=== PATIENT | female | born 1995 | race Caucasian/White ===

== ENCOUNTER 2017-03-31 21:51 | Emergency (ER) | payer BC ==
[~2017-03-31] VITALS: Ht 160 cm; Wt 97.5 kg
[~2017-03-31 21:51] MED LIST: ALB18R INH; AMOX-559 PO; ATOM40CA7 PO; AZIT-1 PO; BIRTH CONTROL PILL PO; CEPH250C37 PO; CEPH500C24 PO; DICY-42 PO; DICY10CA11 PO; DIPH-740 PO; DOCU-416 PO; DOCU50CA8 PO; EPIN0.3P15 IM; ETHI1TAB3 PO; HYDR-4225 PO; HYDR-4309 PO; HYDR25SU10 PR; IBUP800T37 PO; LANS15CA54 PO; LEVO1TAB31 PO; LIDOCAINE 2% VISC SLN 15ML UDC PO ONE; LOR5/325 PO; LORA-1455 PO; LORA-1456 PO; MAG HYD/AL HYD/SIMETH 30ML UDC PO ONE; MELA1LIQ PO; MELO-205 PO; METF-410 PO; METH4TAB66 PO; NAPR275T86 PO; OMEP-114 PO; ONDA4TAB PO; ONDA4TAB97 PO; OXYC-865 PO; PER PO; POTA10CA40 PO; PRED-1 PO; PRED20TA6 PO; PROM-110 PO; PROM50SU7 PO; RANI-324 PO; SULF-198 PO; TRAM-420 PO; TRAZ-163 PO; birth control
[2017-03-31] MEDS ORDERED: BUPR-133 PO (21:56)
[2017-03-31] MEDS ORDERED: NS(*) 0.9% 1000 ML BAG 1,000 ML IV ONE (22:19)
--- NOTE | 2017-03-31 22:19 | ER Report ---
History and Physical Time Seen By MD: 23:00 Hx. of Stated Complaint: PT. HERE FOR RIGHT MIDDLE AND LOWER QUADRANT PAIN. STATES SHE HAS HAD DIARRHEA AND BELIEVES THERE IS BLOOD IN IT. ACID REFLUX TYPE SYMPTOMS. HPI/ROS CHIEF COMPLAINT: Abdominal pain HISTORY OF PRESENT ILLNESS: 32-year-old female with right upper quadrant pain off and on for 2 weeks worse with foods high in fat family history of gallstones on her father's side also presenting with diarrhea and black tarry stools 2 also noticed some painful bright red rectal blood this afternoon. No pain below the umbilicus. Denies chance for reports she has an IUD. No nausea vomiting no fevers or chills no chest pain no other concerns or complaints today last milles around 6:30 PM and was a meal bar substitute apple banana. No other concerns or complaints today no sick contacts reports colonoscopy 2 previously lipoma removal and tonsillectomy in the past. No personal history of gallbladder disease. REVIEW OF SYSTEMS: Constitutional: No fever, no chills. Eyes: No discharge. ENT: No sore throat. Cardiovascular: No chest pain, no palpitations. Respiratory: No cough, no shortness of breath. Gastrointestinal: Otherwise negative Genitourinary: No hematuria. No dysuria or frequency urgency or hesitancy Musculoskeletal: No back pain. Skin: No rashes. Neurological: No headache. Allergies: Coded Allergies: pork derived (porcine) (Verified Allergy, Severe, 03/31/17) anaphylaxis soy (Verified Allergy, Severe, 03/31/17) anaphylaxis Uncoded Allergies: beans (Allergy, Severe, 11/22/13) anaphylaxis turkey (Allergy, Mild, cramps, 12/22/13) Home Meds Active Scripts Epinephrine (EPIPEN 2-JEMMA) 0.3 Mg/0.3 Ml Pen.injctr, 0.3 MG IM BID for allergic reaction, #1 3 Refills Prov:JAIME PHILLIP 12/20/15 Reported Medications Bupropion Hcl (WELLBUTRIN SR) 100 Mg Tablet.er, 100 MG PO QDAY, TAB 03/31/17 Discontinued Reported Medications Trazodone Hcl (TRAZODONE HCL) 100 Mg Tablet, 100 MG PO PRN, TAB 08/21/16 Potassium Chloride (POTASSIUM CHLORIDE) 10 Meq Capsule.er, 10 MEQ PO QDAY 12/01/15 Discontinued Scripts Lorazepam (ATIVAN) 0.5 Mg Tablet, 1-2 TAB PO Q6-8H Y for seizures, #10 Prov:SIOMARA BERGER DO 12/01/16 Ondansetron Hcl (ZOFRAN) 4 Mg Tablet, 4 MG PO Q6H Y for NAUSEA/VOMITING, #10 Prov:SIOMARA BERGER DO 12/01/16 Hydroxyzine Hcl (HYDROXYZINE HCL) 25 Mg Tablet, 25 MG PO 2-4XD for 7 Days, #1 BOT Prov:CATE CHAMBERS MD 09/12/16 Methylprednisolone (METHYLPREDNISOLONE) 4 Mg Tab.ds.pk, 4 MG PO DIRECTED for 7 Days, #14 TAB Prov:CATE CHAMBERS MD 09/12/16 Prednisone (PREDNISONE) 20 Mg Tablet, 60 MG PO QDAY, #12 TAB 0 Refills Prov:VICENTE LU MD 09/04/16 Hydrocortisone Acetate (Hemmorex-Hc) 25 Mg Supp.rect, 1 SUPP.RECT [place] BID Y for inflamed hemorrhoids, #20 Prov:SIOMARA BERGER DO 08/21/16 Hydroxyzine Hcl (HYDROXYZINE HCL) 25 Mg Tablet, 25 MG PO 3-4XD Y for NAUSEA/ VOMITING, #20 Prov:SIOMARA BERGER DO 08/21/16 Ranitidine Hcl (ZANTAC) 150 Mg Tablet, 150 MG PO BID, #10 TAB Prov:JAIME PHILLIP DO 12/20/15 Hx Smoking: Yes (SMOKED 1/2 PPD FOR 1.5 YEARS) Smoking Status: Former Smoker Exposure to Second Hand Smoke?: Yes Hx Substance Use Disorder: No Hx Alcohol Use: No Constitutional Vital Sign - Last 24 Hours 03/31/17 21:56 Temp 98.2 Pulse 86 Resp 20 B/P (MAP) 127/75 Pulse Ox 96 O2 Delivery Room Air Physical Exam General Appearance: The patient is alert, has no immediate need for airway protection and no signs of toxicity. No acute distress appears mildly anxious Eyes: Pupils equal and round no pallor or injection. ENT, Mouth: Mucous membranes are moist. Respiratory: There are no retractions, lungs are clear to auscultation. Cardiovascular: Regular rate and rhythm. No murmurs gallops or rubs Gastrointestinal: Right upper quadrant tenderness to palpation reports worse with deep inspiration. Midline and left-sided abdominal tenderness epigastric region. No tenderness below the umbilicus. Rectal exam: Normal external appearance no obvious fissure. Digital rectal exam produced mild bright red blood visible on glove. Anoscopy revealed no obvious internal bleeding hemorrhoids. Neurological: Normal, intact Skin: Warm and dry, no rashes. Musculoskeletal: Neck is supple non tender. Extremities are nontender, nonswollen and have full range of motion. No edema DIFFERENTIAL DIAGNOSIS: After history and physical exam differential diagnosis was considered for gallstones reflux gastritis peptic ulcer disease, pyelonephritis no signs of AAA or aortic dissection Medical Decision Making Data Points Result Diagram: 03/31/17222403/31/172224 Laboratory Hematology Test 03/31/17 22:25 03/31/17 22:43 03/31/17 22:46 Red Blood Count 4.53 M/uL (4.17-5.56) Mean Corpuscular Volume 93.2 fL (80.0-96.0) Mean Corpuscular Hemoglobin 32.2 pg (26.0-33.0) Mean Corpuscular Hemoglobin Concent 34.5 g/dL (32.0-36.0) Red Cell Distribution Width 13.1 % (11.5-14.5) Mean Platelet Volume 6.7 fL (7.2-11.1) Neutrophils (%) (Auto) 41.3 % (39.4-72.5) Lymphocytes (%) (Auto) 45.2 % (17.6-49.6) Monocytes (%) (Auto) 10.9 % (4.1-12.4) Eosinophils (%) (Auto) 2.1 % (0.4-6.7) Basophils (%) (Auto) 0.5 % (0.3-1.4) Nucleated RBC Relative Count (auto) 0.1 /100WBC Neutrophils # (Auto) 2.4 K/uL (2.0-7.4) Lymphocytes # (Auto) 2.7 K/uL (1.3-3.6) Monocytes # (Auto) 0.6 K/uL (0.3-1.0) Eosinophils # (Auto) 0.1 K/uL (0.0-0.5) Basophils # (Auto) 0.0 K/uL (0.0-0.1) Nucleated RBC Absolute Count (auto) 0.00 K/uL Sodium Level 136 mmol/L (137-145) Potassium Level 3.7 mmol/L (3.5-5.0) Chloride Level 103 mmol/L (98-107) Carbon Dioxide Level 23 mmol/L (22-31) Blood Urea Nitrogen 17 mg/dl (7-18) Creatinine 0.80 mg/dl (0.52-1.04) Glomerular Filtration Rate Calc > 60.0 Random Glucose 88 mg/dl (75-110) Calcium Level 9.5 mg/dl (8.4-10.2) Total Bilirubin 0.5 mg/dl (0.2-1.3) Aspartate Amino Transf (AST/SGOT) 19 U/L (0-35) Alanine Aminotransferase (ALT/SGPT) 41 U/L (0-56) Alkaline Phosphatase 84 U/L (0-126) Total Protein 6.4 gm/dl (6.3-8.2) Albumin 3.9 g/dl (3.5-5.0) Lipase 115 U/L (23-300) Urine Color Yellow Urine Clarity Clear Urine pH 6.0 pH (4.8-9.5) Urine Specific [place] 1.011 Urine Protein Negative mg/dL (NEGATIVE) Urine Glucose (UA) Negative mg/dL (NEGATIVE) Urine Ketones Negative mg/dL (NEGATIVE) Urine Blood Large (NEGATIVE) Urine Nitrite Negative (NEGATIVE) Urine Bilirubin Negative (NEGATIVE) Urine Urobilinogen Negative mg/dL (0.2-1.9) Urine Leukocyte Esterase Negative (NEGATIVE) Urine RBC 156 /HPF (0-2/HPF) Urine WBC 28 /HPF (0-5/HPF) Urine Squamous Epithelial Cells Many /LPF (</=FEW) Urine Bacteria Few /HPF (NONE-FEW) Urine Mucus None /HPF (NONE-FEW) Stool Occult Blood (IFOB) Positive (NEGATIVE) Chemistry Test 03/31/17 22:25 03/31/17 22:43 03/31/17 22:46 White Blood Count 5.9 k/uL (4.5-11.0) Red Blood Count 4.53 M/uL (4.17-5.56) Hemoglobin 14.6 g/dL (12.0-16.0) Hematocrit 42.3 % (34.0-47.0) Mean Corpuscular Volume 93.2 fL (80.0-96.0) Mean Corpuscular Hemoglobin 32.2 pg (26.0-33.0) Mean Corpuscular Hemoglobin Concent 34.5 g/dL (32.0-36.0) Red Cell Distribution Width 13.1 % (11.5-14.5) Platelet Count 248 K/uL (150-450) Mean Platelet Volume 6.7 fL (7.2-11.1) Neutrophils (%) (Auto) 41.3 % (39.4-72.5) Lymphocytes (%) (Auto) 45.2 % (17.6-49.6) Monocytes (%) (Auto) 10.9 % (4.1-12.4) Eosinophils (%) (Auto) 2.1 % (0.4-6.7) Basophils (%) (Auto) 0.5 % (0.3-1.4) Nucleated RBC Relative Count (auto) 0.1 /100WBC Neutrophils # (Auto) 2.4 K/uL (2.0-7.4) Lymphocytes # (Auto) 2.7 K/uL (1.3-3.6) Monocytes # (Auto) 0.6 K/uL (0.3-1.0) Eosinophils # (Auto) 0.1 K/uL (0.0-0.5) Basophils # (Auto) 0.0 K/uL (0.0-0.1) Nucleated RBC Absolute Count (auto) 0.00 K/uL Glomerular Filtration Rate Calc > 60.0 Calcium Level 9.5 mg/dl (8.4-10.2) Total Bilirubin 0.5 mg/dl (0.2-1.3) Aspartate Amino Transf (AST/SGOT) 19 U/L (0-35) Alanine Aminotransferase (ALT/SGPT) 41 U/L (0-56) Alkaline Phosphatase 84 U/L (0-126) Total Protein 6.4 gm/dl (6.3-8.2) Albumin 3.9 g/dl (3.5-5.0) Lipase 115 U/L (23-300) Urine Color Yellow Urine Clarity Clear Urine pH 6.0 pH (4.8-9.5) Urine Specific [place] 1.011 Urine Protein Negative mg/dL (NEGATIVE) Urine Glucose (UA) Negative mg/dL (NEGATIVE) Urine Ketones Negative mg/dL (NEGATIVE) Urine Blood Large (NEGATIVE) Urine Nitrite Negative (NEGATIVE) Urine Bilirubin Negative (NEGATIVE) Urine Urobilinogen Negative mg/dL (0.2-1.9) Urine Leukocyte Esterase Negative (NEGATIVE) Urine RBC 156 /HPF (0-2/HPF) Urine WBC 28 /HPF (0-5/HPF) Urine Squamous Epithelial Cells Many /LPF (</=FEW) Urine Bacteria Few /HPF (NONE-FEW) Urine Mucus None /HPF (NONE-FEW) Stool Occult Blood (IFOB) Positive (NEGATIVE) Urinalysis Test 03/31/17 22:43 Urine Color Yellow Urine Clarity Clear Urine pH 6.0 pH (4.8-9.5) Urine Specific [place] 1.011 Urine Protein Negative mg/dL (NEGATIVE) Urine Glucose (UA) Negative mg/dL (NEGATIVE) Urine Ketones Negative mg/dL (NEGATIVE) Urine Blood Large (NEGATIVE) Urine Nitrite Negative (NEGATIVE) Urine Bilirubin Negative (NEGATIVE) Urine Urobilinogen Negative mg/dL (0.2-1.9) Urine Leukocyte Esterase Negative (NEGATIVE) Urine RBC 156 /HPF (0-2/HPF) Urine WBC 28 /HPF (0-5/HPF) Urine Squamous Epithelial Cells Many /LPF (</=FEW) Urine Bacteria Few /HPF (NONE-FEW) Urine Mucus None /HPF (NONE-FEW) EKG/Imaging Imaging Negative gallbladder study ED Course/Re-evaluation ED Course Plan of care discussed and agreed upon at 03/31/2017 10:18:10 pm 04/01/2017 12:09:59 am patient reports feeling better as well enough to go home. Avoidance of acidic spicy food and NSAIDs was discussed. Home care foods choices and twice a day antacids as well as referral for follow-up was discussed all questions were answered and understood Decision to Disposition Date: Apr 01, 2017 Decision to Disposition Time: 00:10 Depart Departure Latest Vital Signs Vital Signs Date Time Temp Pulse Resp B/P (MAP) Pulse Ox O2 Delivery O2 Flow Rate FiO2 03/31/17 21:56 98.2 86 20 127/75 96 Room Air Impression: Primary Impression: BRBPR (bright red blood per rectum) Additional Impression: Right upper quadrant abdominal pain Condition: Improved Disposition: HOME OR SELF-CARE Referrals: LEELA CAMPBELL (PCP) New Scripts Hydrocodone Bit/Acetaminophen (HYDROCODON-ACETAMINOPHEN 5-325) 1 Each Tablet 1 EACH PO Q6H Y for PAIN, #12 TAB 0 Refills Prov: FRANCESCA HUDSON MD 04/01/17 Pantoprazole Sodium (PROTONIX) 40 Mg Granpkt.dr 40 MG PO BID for 7 Days, #40 PACK Prov: FRANCESCA HUDSON MD 04/01/17 Patient Instructions: Diet for Stomach Ulcers and Gastritis (ED) Additional Instructions: Follow-up. With your Dr. for Helicobacter pylori screening as needed. Follow-up with your surgeon for further evaluation of source of GI blood. Return to the ED for chest pain shortness of breath weakness dizziness lightheadedness pale skin or eyes worsening bleeding failure to improve or other concerns. Problem Qualifiers FRANCESCA HUDSON MD Mar 31, 2017 22:19
[2017-03-31] MEDS ORDERED: MORPHINE 4 MG/ML SYR IVP ONE ×2 (22:20→23:40)
[2017-03-31] MEDS ORDERED: ATRO/SCOPOL/HYOSCY/PB 5 ML ELX PO ONE (22:20)
[2017-03-31] MEDS ORDERED: ONDANSETRON 4 MG/2 ML VIAL IVP ONE (22:20)
[2017-03-31] MEDS ORDERED: FAMOTIDINE(*) 20MG/50ML PREMIX 50 ML IVPB ONE (22:20)
[2017-03-31 22:49] LABS: PLATELET COUNT, AUTOMATED 248 K/uL (150-450)
[2017-03-31 23:47] VITALS: BP 123/85
--- NOTE | 2017-03-31 23:53 | RADIOLOGY IMAGING REPORT ---
FACILITY: [facility] PATIENT NAME: Sally Smiley : 1995 MR: [id number] V: [id number] EXAM DATE: ORDERING PHYSICIAN: FRANCESCA HUDSON TECHNOLOGIST: Location: [facility] Patient: Sally Smiley : 1995 Visit/Account:[id number] Date of Sevice: 03/31/2017 Right upper quadrant ultrasound HISTORY: Abdominal pain COMPARISON: None. FINDINGS: Gallbladder: Negative.. Bile ducts: There is no biliary ductal dilation with the CBD measuring 3 mm. Liver: Negative. Pancreas: Obscured by bowel gas Right kidney: Negative. Upper abdominal aorta and IVC: Patent. Ascites: None visualized. Other findings: None significant IMPRESSION: 1. Normal gallbladder. No biliary ductal dilatation. 2. Suboptimal visualization of the pancreas. Report Dictated By: Matt Gaitan MD at 03/31/2017 11:47 PM Report E-Signed By: Matt Gaitan MD at 03/31/2017 11:48 PM WSN:[id number]
[2017-04-01] MEDS ORDERED: PANT40SU3 PO (00:14)
[2017-04-01] MEDS ORDERED: LOR5/325 PO (00:16)
== END 2017-04-01 00:28 | disposition home or self-care (01) ==
LOC: ER 22:00
DX: K62.5 Hemorrhage of anus and rectum (principal)
CPT/HCPCS: 76705; 81001; 82274; 83690; 85025; 96361; 96365; 96375; 96376; 99283; J2270; J2405; J3490; J7030; 82040; 82247; 82310; 82374; 82435; 82565; 82947; 84075; 84132; 84155; 84295; 84450; 84460; 84520

== ENCOUNTER 2017-04-06 00:34 | Emergency (ER) | payer BC ==
[~2017-04-06] VITALS: Ht 160 cm; Wt 97.5 kg
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
[2017-04-06] MEDS ORDERED: methylPREDNIS SUCC 125 MG/2ML IVP ONE (00:40)
[2017-04-06] MEDS ORDERED: FAMOTIDINE(*) 20MG/50ML PREMIX 50 ML IVPB ONE (00:40)
[2017-04-06] MEDS ORDERED: NS(*) 0.9% 1000 ML BAG 1,000 ML IV ONE (00:40)
[2017-04-06] MEDS ORDERED: PRED20TA6 PO (02:03)
[2017-04-06] MEDS ORDERED: EPIN0.3P15 IM (02:04)
[2017-04-06] MEDS ORDERED: predniSONE 20 MG TAB PO ONE (02:05)
[2017-04-06 02:07] VITALS: BP 128/88
== END 2017-04-06 02:11 | disposition home or self-care (01) ==
LOC: ER 00:37
DX: T78.1XXA Other adverse food reactions, not elsewhere classified, initial encounter (principal)
CPT/HCPCS: 96365; 96375; 99284; J2930; J3490; J7030; J7512

== ENCOUNTER → 2017-04-06 | Outpatient (CLI) | payer BC ==
[~2017-04-06] MED LIST changes: +BUPR-133 PO; -LIDOCAINE 2% VISC SLN 15ML UDC PO ONE; -MAG HYD/AL HYD/SIMETH 30ML UDC PO ONE; +PANT40SU3 PO
== END ==
LOC: AMB 00:08
PROVIDERS: ATTEND Nurse Practitioner
DX: T78.1XXA Other adverse food reactions, not elsewhere classified, initial encounter (principal); R11.10 Vomiting, unspecified
CPT/HCPCS: A0425; A0433

== ENCOUNTER → 2017-04-09 | Outpatient (CLI) | payer BC ==
[2017-04-09 15:34] LABS: PLATELET COUNT, AUTOMATED 238 K/uL (150-450)
== END ==
LOC: LAB 15:09
PROVIDERS: ATTEND Nurse Practitioner Family
DX: R19.7 Diarrhea, unspecified (principal); K92.1 Melena; R10.30 Lower abdominal pain, unspecified
CPT/HCPCS: 36415; 82040; 82247; 82248; 82274; 82784; 83516; 83993; 84075; 84155; 84450; 84460; 85025; 85651; 86140; 87045; 87177; 87324; 87449

== ENCOUNTER 2017-04-14 01:21 | Emergency (ER) | payer BC ==
[~2017-04-14] VITALS: Ht 160 cm; Wt 94.8 kg
--- NOTE | 2017-04-14 01:28 | ER Report ---
History and Physical Time Seen By MD: 01:27 HPI/ROS CHIEF COMPLAINT: rectal bleeding and syncope HISTORY OF PRESENT ILLNESS: This is a 22 year old female. She indicates that she had a syncopal episode at home tonight. She passed out and then awoke with a small puddle of blood. She estimates that she passed a couple of cups of blood. She has been having about 7 months of having GI bleeds. She has been to the ER several times for this, and has had positive stools on occult blood. Labs have been alright each time otherwise. She has followed up with general surgery here and had upper endoscopy and colonoscopy without identification of any abnormality other than some internal hemorrhoids that did not appear to be bleeding. She has been evaluated by BRAD Galvez, at [facility] and has an appointment with her this Saturday. She does not know how long she was out tonight, estimates a couple of hours. She denies chest pains or shortness of breath. She is having ongoing nausea/vomiting tonight. Has not noted any hematemesis. She is having right and left lower abdominal pains. She said her urine had a pink color yesterday, but normal today. She has had bleeding every other or every third day for the last couple of months. She says that it seems to be happening more frequently and worsening when it does happen. REVIEW OF SYSTEMS: Constitutional: No fever or chills. Eyes: No vision changes. ENT: No sore throat. No congestion. Cardiovascular: No chest pain. No palpitations. Respiratory: No cough. No shortness of breath. Gastrointestinal: As above. Genitourinary: No dysuria. No frequency Musculoskeletal: No musculoskeletal pain. Skin: No rashes. No bruising. Neurological: No numbness. No headache. Allergies: Coded Allergies: pork derived (porcine) (Verified Allergy, Severe, 04/14/17) anaphylaxis soy (Verified Allergy, Severe, 04/14/17) anaphylaxis Uncoded Allergies: beans (Allergy, Severe, 11/22/13) anaphylaxis turkey (Allergy, Mild, cramps, 12/22/13) Home Meds Active Scripts Epinephrine (EPIPEN 2-JEMMA) 0.3 Mg/0.3 Ml Pen.injctr, 0.3 MG IM DIRECTED, #1 PACK 0 Refills Prov:VICENTE LU MD 04/06/17 Prednisone (PREDNISONE) 20 Mg Tablet, 20 MG PO QDAY for 2 Days, #4 TAB 0 Refills Prov:VICENTE LU MD 04/06/17 Hydrocodone Bit/Acetaminophen (HYDROCODON-ACETAMINOPHEN 5-325) 1 Each Tablet, 1 EACH PO Q6H Y for PAIN, #12 TAB 0 Refills Prov:FRANCESCA HUDSON MD 04/01/17 Pantoprazole Sodium (PROTONIX) 40 Mg Granpkt.dr, 40 MG PO BID for 7 Days, #40 PACK Prov:FRANCESCA HUDSON MD 04/01/17 Epinephrine (EPIPEN 2-JEMMA) 0.3 Mg/0.3 Ml Pen.injctr, 0.3 MG IM BID for allergic reaction, #1 3 Refills Prov:JAIME PHILLIP DO 12/20/15 Reported Medications Bupropion Hcl (WELLBUTRIN SR) 100 Mg Tablet.er, 100 MG PO QDAY, TAB 03/31/17 Past Medical/Surgical History Irritable bowel syndrome, polycystic ovarian syndrome, history of kidney stones , exercised induced asthma, depression and anxiety. Surgeries include lipoma removal, tonsils, was to him teeth. Colonoscopies and EGDs as noted above. Reviewed Nurses Notes: Yes Hx Smoking: Yes (SMOKED 1/2 PPD FOR 1.5 YEARS) Smoking Status: Former Smoker Exposure to Second Hand Smoke?: Yes Hx Substance Use Disorder: No Hx Alcohol Use: No Constitutional Vital Sign - Last 24 Hours 04/14/17 04/14/17 04/14/17 04/14/17 01:30 01:37 01:37 01:37 Pulse 133 Resp 24 B/P (MAP) 129/85 118/84 (95) 111/99 (103) 131/104 (113) Pulse Ox 94 O2 Delivery Room Air 04/14/17 04/14/17 04/14/17 04/14/17 01:51 01:59 02:00 02:06 Pulse 111 113 B/P (MAP) 128/86 (100) 134/84 (101) Pulse Ox 91 94 04/14/17 04/14/17 04/14/17 04/14/17 02:21 02:30 02:41 02:46 Pulse 116 125 115 B/P (MAP) 125/82 (96) Pulse Ox 93 88 100 04/14/17 04/14/17 04/14/17 04/14/17 02:51 03:21 03:36 03:41 Pulse 114 ??? 108 106 Pulse Ox 96 94 96 96 04/14/17 04/14/17 04/14/17 04/14/17 03:56 04:00 04:05 04:20 Pulse 112 117 107 B/P (MAP) 85/47 (60) Pulse Ox 94 96 96 04/14/17 04/14/17 04/14/17 04/14/17 04:30 04:35 04:50 04:55 Pulse ??? 101 ??? B/P (MAP) 101/68 (79) Pulse Ox 96 94 91 04/14/17 04/14/17 04/14/17 04/14/17 05:00 05:10 05:25 05:30 Pulse 102 103 B/P (MAP) 91/61 (71) 91/45 (60) Pulse Ox 92 89 04/14/17 04/14/17 04/14/17 04/14/17 05:35 05:50 06:00 06:05 Pulse 100 102 100 B/P (MAP) 90/50 (63) Pulse Ox 89 92 84 Physical Exam General Appearance: The patient is alert. she is very anxious. Non-toxic in appearance. Occasional vomiting during the history and physical. Eyes: Pupils are equal, round. No pallor, injection or icterus. ENT: Mucous membranes are moist. Normal oral mucosa. Posterior oropharynx is normal. Neck: Supple and non tender. Respiratory: Lungs are clear to auscultation. Cardiovascular: Tachycardia, but with a regular rhythm. No murmurs, gallops or rubs. Normal capillary refill. No edema. Gastrointestinal: Abdomen is soft, but very tender with palpation of the left lower and right lower quadrants. Nondistended. She has guarding but no rebound. Hyper-active bowel sounds. No costovertebral angle tenderness with percussion. Rectal: Tenderness on exam, but no masses. Very scan brownish color, no red blood on exam. Neurological: Alert and oriented x3. Cranial nerves II through XII show no acute deficits on my exam. No focal neurologic deficits in the extremities. Skin: Warm and dry. No rashes. No bruising. Musculoskeletal: Extremities are nontender. No tenderness in palpation of the back/spine. DIFFERENTIAL DIAGNOSIS: After history and physical exam, differential diagnosis was considered for history of syncopal episode at home and recent episode of bright red blood with history of GI bleeding intermittently for months now. Medical Decision Making Data Points Result Diagram: 04/14/17 0548 04/14/17 0155 Laboratory Hematology Test 04/14/17 00:00 04/14/17 01:55 04/14/17 02:25 04/14/17 05:48 Gastric Fluid pH 3 pH Gastric Fluid Occult Blood Negative (NEGATIVE) Prothrombin Time 13.5 seconds (12.0-14.4) Prothromb Time International Ratio 1.03 Activated Partial Thromboplast Time 27 seconds (23-35) Sodium Level 142 mmol/L (137-145) Potassium Level 3.5 mmol/L (3.5-5.0) Chloride Level 108 mmol/L (98-107) Carbon Dioxide Level 17 mmol/L (22-31) Blood Urea Nitrogen 22 mg/dl (7-18) Creatinine 1.00 mg/dl (0.52-1.04) Glomerular Filtration Rate Calc > 60.0 Random Glucose 84 mg/dl (75-110) Calcium Level 9.3 mg/dl (8.4-10.2) Total Bilirubin 0.3 mg/dl (0.2-1.3) Aspartate Amino Transf (AST/SGOT) 21 U/L (0-35) Alanine Aminotransferase (ALT/SGPT) 39 U/L (0-56) Alkaline Phosphatase 73 U/L (0-126) Total Protein 6.8 gm/dl (6.3-8.2) Albumin 4.1 g/dl (3.5-5.0) Stool Occult Blood (IFOB) Positive (NEGATIVE) Red Blood Count 3.82 M/uL (4.17-5.56) Mean Corpuscular Volume 95.4 fL (80.0-96.0) Mean Corpuscular Hemoglobin 33.1 pg (26.0-33.0) Mean Corpuscular Hemoglobin Concent 34.7 g/dL (32.0-36.0) Red Cell Distribution Width 13.1 % (11.5-14.5) Mean Platelet Volume 6.5 fL (7.2-11.1) Neutrophils (%) (Auto) 50.4 % (39.4-72.5) Lymphocytes (%) (Auto) 36.8 % (17.6-49.6) Monocytes (%) (Auto) 11.5 % (4.1-12.4) Eosinophils (%) (Auto) 1.0 % (0.4-6.7) Basophils (%) (Auto) 0.3 % (0.3-1.4) Nucleated RBC Relative Count (auto) 0.0 /100WBC Neutrophils # (Auto) 3.3 K/uL (2.0-7.4) Lymphocytes # (Auto) 2.4 K/uL (1.3-3.6) Monocytes # (Auto) 0.8 K/uL (0.3-1.0) Eosinophils # (Auto) 0.1 K/uL (0.0-0.5) Basophils # (Auto) 0.0 K/uL (0.0-0.1) Nucleated RBC Absolute Count (auto) 0.00 K/uL Chemistry Test 04/14/17 00:00 04/14/17 01:55 04/14/17 02:25 04/14/17 05:48 Gastric Fluid pH 3 pH Gastric Fluid Occult Blood Negative (NEGATIVE) Prothrombin Time 13.5 seconds (12.0-14.4) Prothromb Time International Ratio 1.03 Activated Partial Thromboplast Time 27 seconds (23-35) Glomerular Filtration Rate Calc > 60.0 Calcium Level 9.3 mg/dl (8.4-10.2) Total Bilirubin 0.3 mg/dl (0.2-1.3) Aspartate Amino Transf (AST/SGOT) 21 U/L (0-35) Alanine Aminotransferase (ALT/SGPT) 39 U/L (0-56) Alkaline Phosphatase 73 U/L (0-126) Total Protein 6.8 gm/dl (6.3-8.2) Albumin 4.1 g/dl (3.5-5.0) Stool Occult Blood (IFOB) Positive (NEGATIVE) White Blood Count 6.6 k/uL (4.5-11.0) Red Blood Count 3.82 M/uL (4.17-5.56) Hemoglobin 12.6 g/dL (12.0-16.0) Hematocrit 36.4 % (34.0-47.0) Mean Corpuscular Volume 95.4 fL (80.0-96.0) Mean Corpuscular Hemoglobin 33.1 pg (26.0-33.0) Mean Corpuscular Hemoglobin Concent 34.7 g/dL (32.0-36.0) Red Cell Distribution Width 13.1 % (11.5-14.5) Platelet Count 189 K/uL (150-450) Mean Platelet Volume 6.5 fL (7.2-11.1) Neutrophils (%) (Auto) 50.4 % (39.4-72.5) Lymphocytes (%) (Auto) 36.8 % (17.6-49.6) Monocytes (%) (Auto) 11.5 % (4.1-12.4) Eosinophils (%) (Auto) 1.0 % (0.4-6.7) Basophils (%) (Auto) 0.3 % (0.3-1.4) Nucleated RBC Relative Count (auto) 0.0 /100WBC Neutrophils # (Auto) 3.3 K/uL (2.0-7.4) Lymphocytes # (Auto) 2.4 K/uL (1.3-3.6) Monocytes # (Auto) 0.8 K/uL (0.3-1.0) Eosinophils # (Auto) 0.1 K/uL (0.0-0.5) Basophils # (Auto) 0.0 K/uL (0.0-0.1) Nucleated RBC Absolute Count (auto) 0.00 K/uL Coagulation Test 04/14/17 01:55 Prothrombin Time 13.5 seconds Prothromb Time International Ratio 1.03 Activated Partial Thromboplast Time 27 seconds EKG/Imaging EKG Interpretation 12 lead EKG: Rhythm: Sinus tachycardia, rate 115 [place]: normal QRS: normal ST segments: Nonspecific T-wave changes. No ST elevation or depression noted. Imaging Head CT scan without contrast COMPARISONS: None HISTORY: Syncope TECHNIQUE: Non-contrast head CT was performed with sagittal and coronal reformations. One of the following dose optimization techniques was utilized in the performance of this exam: automated exposure control; adjustment of the mA and/ or kV according to patient size; or use of iterative reconstruction technique. Specific details can be referenced in the facility's radiology CT exam operational policy. FINDINGS: There is no intracranial hemorrhage, hydrocephalus or midline shift. The basal cisterns, mills-white differentiation, and convexity sulci are maintained. Normal orbital soft tissues. The mastoid air cells are clear. The paranasal sinuses are clear. The osseous structures are normal. IMPRESSION: No acute intracranial abnormality. Report Dictated By: Roberth Monique MD at 04/14/2017 3:27 AM EXAMINATION: Abdomen and pelvis CT with contrast HISTORY: Right lower quadrant pain, bright red blood per rectum TECHNIQUE: CT was performed through the abdomen and pelvis following injection of iodinated intravenous contrast. Sagittal and coronal MPR reformatted images were generated. 75 mL isovue 370 injected. One of the following dose optimization techniques was utilized in the performance of this exam: automated exposure control; adjustment of the mA and/ or kV according to patient size; or use of iterative reconstruction technique. Specific details can be referenced in the facility's radiology CT exam operational policy. COMPARISON: None. FINDINGS: Lower chest: Normal. Spleen: Normal. Adrenal glands: Normal. Pancreas: Normal. Kidneys: Normal. Gallbladder: Normal. Liver: Normal. Vessels: Normal. Lymph node assessment: Normal. Bowel including small bowel, colon and appendix: Normal stomach, normal small bowel, normal appendix, normal colon. Peritoneum / retroperitoneum / mesentery: Normal. Pelvic structures: Normal bladder and normal rectum. IUD within the uterine endometrial canal. No pelvic fluid or adenopathy. Right ovarian corpus luteum cyst measuring 1.4 cm. Body wall: Normal. Musculoskeletal: No fracture or osseous destruction. IMPRESSION: 1. No acute finding. 2. 1.4 cm right ovarian corpus routine cyst. Report Dictated By: Roberth Monique MD at 04/14/2017 3:31 AM ED Course/Re-evaluation Clinical Indication for ER IV: Hydration, IV Access ED Course Initial vitals as noted above. Nursing took supine blood pressure which was 131/ 104 and then standing was 111/99. She has reained tachycardic in the 110-120 range. She went to the bathroom and had a near syncopal episode and fell onto hands and knees, but not loc. She does feel dizzy with upright position. EKG was obtained as noted above. CT scans done which were negative. Labs show a normal H/H, Platelets, and coagulation factors. Patient has had two near syncopal episodes here in the ER and almost fell. She is still feeling dizzy. Having continued abdominal pain. Discussed the results with the patient. Called and discussed the case with Dr. Garza, gastroenterology at [facility] and the hospitalist, Dr. Connelly. Based on labs and vitals, they felt that transfer was not indicated at this time. Recommended to follow-up with their office as planned this week unless further problems. We will provide further normal saline and re-evaluate to make sure she is stable prior to discharge. Patient was given another 2 liters of normal saline over the next few hours. She was feeling better. She is still a little dizzy, but with time, she does okay. A CBC was repeated and her H/H is a little lower, but still within normal limits. She will keep her appointment with the GI specialist on Saturday. She can return to the ER either here or [place] if she is having further problems. Decision to Disposition Date: Apr 14, 2017 Decision to Disposition Time: 06:09 Depart Departure Latest Vital Signs Vital Signs Date Time Temp Pulse Resp B/P (MAP) Pulse Ox O2 Delivery O2 Flow Rate FiO2 04/14/17 06:05 100 84 04/14/17 06:00 90/50 (63) 04/14/17 01:30 24 Room Air Impression: Primary Impression: Gastrointestinal bleeding Additional Impression: Syncope Condition: Improved Disposition: HOME OR SELF-CARE Referrals: LEELA CAMPBELL (PCP) Patient Instructions: Gastrointestinal Bleeding (ED) Additional Instructions: Your lab work looked okay tonight. Watch for further bleeding. Take it slowly when you get up from a laying or seated position to avoid becoming dizzy or falling. Keep you appointment with the GI specialists in [place] on Saturday as planned. If you have further bleeding, please consider further evaluation sooner at the ER or with your GI specialist in [place]. Problem Qualifiers Primary Impression: Gastrointestinal bleeding GI bleed type/associated pathology: unspecified gastrointestinal hemorrhage type Qualified Codes: K92.2 - Gastrointestinal hemorrhage, unspecified Additional Impression: Syncope Syncope type: vasovagal syncope Qualified Codes: R55 - Syncope and collapse VICENTE LU MD Apr 14, 2017 01:28
[2017-04-14] MEDS ORDERED: NS(*) 0.9% 1000 ML BAG 1,000 ML IV ONE ×4 (01:35→05:00)
[2017-04-14] MEDS ORDERED: ONDANSETRON 4 MG/2 ML VIAL IVP ONE (01:35)
[2017-04-14] MEDS ORDERED: NS 0.9% 20 ML SDV 40 ML ONE (01:50)
[2017-04-14] MEDS ORDERED: IOPAMIDOL 76% 75 ML INFUS BTL 75 ML ONE (01:50)
[2017-04-14 02:12] LABS: PLATELET COUNT, AUTOMATED 243 K/uL (150-450)
[2017-04-14 02:15] LABS: INR 1.03
[2017-04-14] MEDS ORDERED: PROMETHAZINE 25 MG/ML 1 ML AMP IVP ONE (02:35)
[2017-04-14] MEDS ORDERED: PANTOPRAZOLE SOD 40 MG IV VIAL IVP ONE (02:35)
--- NOTE | 2017-04-14 03:37 | RADIOLOGY IMAGING REPORT ---
FACILITY: [facility] [place] PATIENT NAME: Sally Smiley : 1995 MR: [id number] V: [id number] EXAM DATE: ORDERING PHYSICIAN: VICENTE LU TECHNOLOGIST: [place] [facility] [place] : 1995 Visit/Account:[id number] Date of Sevice: 04/14/[address] scan without contrast COMPARISONS: None HISTORY: Syncope TECHNIQUE: Non-contrast head CT was performed with sagittal and coronal reformations. One of the following dose optimization techniques was utilized in the performance of this exam: autom ated exposure control; adjustment of the mA and/or kV according to patient size; or use of iterative reconstruction technique. Specific details can be referenced in the facility's radiology CT exam ope rational policy. FINDINGS: There is no intracranial hemorrhage, hydrocephalus or midline shift. The basal cisterns, mills-white differentiation, and convexity sulci are maintained. Normal orbital soft tissues. The mastoid air cells are clear. The paranasal sinuses are clear. The osseous structures are normal . IMPRESSION: No acute intracranial abnormality. Report Dictated By: Roberth Monique MD at 04/14/2017 3:27 AM Report E-Signed By: Roberth Monique MD at 04/14/2017 3:31 AM WSN:[id number]
--- NOTE | 2017-04-14 03:41 | RADIOLOGY IMAGING REPORT ---
[place] [facility] [place] Sally Sm[place] : 1995 MR: [id number] V: [id number] EXAM DATE: ORDERING PHYSICIAN: VICENTE LU TECHNOLOGIST: [place] [facility] [place] Sm[place] : 1995 Visit/Account:[id number] Date of Sevice: 04/14/2017 EXAMINATION: Abdomen and pelvis CT with contrast HISTORY: Right lower quadrant pain, bright red blood per rectum TECHNIQUE: CT was performed through the abdomen and pelvis following injection of iodinated intrave nous contrast. Sagittal and coronal MPR reformatted images were generated. 75 mL isovue 370 injected . One of the following dose optimization techniques was utilized in the performance of this exam: autom ated exposure control; adjustment of the mA and/or kV according to patient size; or use of iterative reconstruction technique. Specific details can be referenced in the facility's radiology CT exam ope rational policy. COMPARISON: None. FINDINGS: Lower chest: Normal. Spleen: Normal. Adrenal glands: Normal. Pancreas: Normal. Kidneys: Normal. Gallbladder: Normal. Liver: Normal. Vessels: Normal. Lymph node assessment: Normal. Bowel including small bowel, colon and appendix: Normal stomach, normal small bowel, normal appendix, normal colon. Peritoneum / retroperitoneum / mesentery: Normal. Pelvic structures: Normal bladder and normal rectum. IUD within the uterine endometrial canal. No pelvic fluid or adenopathy. Right ovarian corpus luteum cyst measuring 1.4 cm. Body wall: Normal. Musculoskeletal: No fracture or osseous destruction. IMPRESSION: 1. No acute finding. 2. 1.4 cm right ovarian corpus routine cyst. Report Dictated By: Roberth Monique MD at 04/14/2017 3:31 AM Report E-Signed By: Roberth Monique MD at 04/14/2017 3:37 AM WSN:[id number]
[2017-04-14] MEDS ORDERED: MORPHINE 2 MG/ML SYR IVP ONE (04:45)
--- NOTE | 2017-04-14 04:57 | EKG ---
FACILITY: [facility] PATIENT NAME: PAULO SARAH : [id number] MR: [id number]: [id number] EXAM DATE: ORDERING PHYSICIAN: VICENTE LU TECHNOLOGIST: KHALIDA Test Reason : ABDOMINAL PAIN Blood Pressure : / mmHG Vent. Rate : 115 BPM Atrial Rate : 115 BPM P-R Int : 148 ms QRS Dur : 096 ms QT Int : 336 ms P-R-T Axes : 052 057 019 degrees QTc Int : 464 ms Sinus tachycardia Artifact in several precordial leads - repeat if needed Abnormal ECG Confirmed by TIMOTHY LYON ([id number]) on 04/14/2017 5:51:57 AM Referred By: Confirmed By:TIMOTHY LYON
[2017-04-14 06:08] LABS: PLATELET COUNT, AUTOMATED 189 K/uL (150-450)
[2017-04-14 06:20] VITALS: BP 97/63
[2017-04-14] MEDS ORDERED: ONDA4TAB97 PO (22:48)
[2017-04-14] MEDS ORDERED: PROM-110 PO (22:48)
[2017-04-14] MEDS ORDERED: TRAM-420 PO (22:48)
== END 2017-04-14 06:24 | disposition home or self-care (01) ==
LOC: ER 02:00
DX: K92.2 Gastrointestinal hemorrhage, unspecified (principal); R55 Syncope and collapse
CPT/HCPCS: 70450; 74177; 82271; 82274; 83986; 85025; 85610; 85730; 93005; 96361; 96374; 96375; 99284; C9113; J2270; J2405; J2550; J7030; J7050; Q9967; 82040; 82247; 82310; 82374; 82435; 82565; 82947; 84075; 84132; 84155; 84295; 84450; 84460; 84520

== ENCOUNTER 2017-04-14 21:29 | Emergency (ER) | payer BC ==
[~2017-04-14] VITALS: Ht 160 cm; Wt 94.8 kg
--- NOTE | 2017-04-14 21:32 | ER Report ---
History and Physical Time Seen By MD: 21:31 HPI/ROS CHIEF COMPLAINT: Right upper and lower quadrant abdominal pain, continued rectal bleeding HISTORY OF PRESENT ILLNESS: 22-year-old female presents ambulatory to the ER complaining of increasing abdominal pain and continued rectal bleeding. She was seen less than 24 hours ago here in the emergency department for an extensive evaluation. She apparently had a syncopal episode at home, thought to be secondary to GI bleed. However, her H&H were stable. She was given aggressive fluid rehydration. She has had endoscopy and colonoscopy 6 months ago which was unremarkable except for internal hemorrhoids. She has an appointment with her GI specialist in [place] in 3 days. She describes sharp stabbing right upper quadrant and right mid quadrant pain radiating to her back. She notes nausea and vomiting. She's had several loose stools with some blood in them. She denies passing clots. She denies bright red blood per rectum. She denies fever or chills. Patient admits a history of kidney stones. She states it does not feel like kidney stones to her. REVIEW OF SYSTEMS: Respiratory: No cough, no dyspnea. Cardiovascular: No chest pain, no palpitations. Gastrointestinal: As above Musculoskeletal: As above Allergies: Coded Allergies: pork derived (porcine) (Verified Allergy, Severe, 04/14/17) anaphylaxis soy (Verified Allergy, Severe, 04/14/17) anaphylaxis Uncoded Allergies: beans (Allergy, Severe, 11/22/13) anaphylaxis turkey (Allergy, Mild, cramps, 12/22/13) Home Meds Active Scripts Ondansetron Hcl (ZOFRAN) 4 Mg Tablet, 4 MG PO Q6H Y for NAUSEA/VOMITING, #12 Prov:SIOMARA BERGER DO 04/14/17 Promethazine Hcl (PROMETHAZINE HCL) 25 Mg Tablet, 25 MG PO Q4H Y for NAUSEA/ VOMITING, #14 TAB Prov:SIOMARA BERGER DO 04/14/17 Tramadol Hcl (TRAMADOL HCL) 50 Mg Tablet, 1 TAB PO Q6H Y for PAIN, #15 MG TAKE ONE TABLETS BY MOUTH EVERY SIX HOURS NEEDED Prov:SIOMARA BERGER DO 04/14/17 Epinephrine (EPIPEN 2-JEMMA) 0.3 Mg/0.3 Ml Pen.injctr, 0.3 MG IM DIRECTED, #1 PACK 0 Refills Prov:VICENTE LU MD 04/06/17 Reported Medications Bupropion Hcl (WELLBUTRIN SR) 100 Mg Tablet.er, 100 MG PO QDAY, TAB 03/31/17 Discontinued Scripts Prednisone (PREDNISONE) 20 Mg Tablet, 20 MG PO QDAY for 2 Days, #4 TAB 0 Refills Prov:VICENTE LU MD 04/06/17 Hydrocodone Bit/Acetaminophen (HYDROCODON-ACETAMINOPHEN 5-325) 1 Each Tablet, 1 EACH PO Q6H Y for PAIN, #12 TAB 0 Refills Prov:FRANCESCA HUDSON MD 04/01/17 Pantoprazole Sodium (PROTONIX) 40 Mg Granpkt.dr, 40 MG PO BID for 7 Days, #40 PACK Prov:FRANCESCA HUDSON MD 04/01/17 Epinephrine (EPIPEN 2-JEMMA) 0.3 Mg/0.3 Ml Pen.injctr, 0.3 MG IM BID for allergic reaction, #1 3 Refills Prov:JAIME PHILLIP DO 12/20/15 Reviewed Nurses Notes: Yes Old Medical Records Reviewed: Yes Hx Smoking: Yes (SMOKED 1/2 PPD FOR 1.5 YEARS) Smoking Status: Former Smoker Exposure to Second Hand Smoke?: Yes Hx Substance Use Disorder: No Hx Alcohol Use: No Constitutional Vital Sign - Last 24 Hours 04/14/17 04/14/17 04/14/17 04/14/17 21:34 21:45 22:00 22:15 Temp 99.6 Pulse 121 110 121 117 Resp 16 B/P (MAP) 147/87 Pulse Ox 94 93 90 95 O2 Delivery Room Air 04/14/17 04/14/17 22:30 22:45 Pulse 107 98 Pulse Ox 93 93 Physical Exam General Appearance: The patient is alert, has no immediate need for airway protection and no current signs of toxicity. Vital signs stable, afebrile, mildly tachycardic, moderate distress, slightly pale appearing, skin warm and dry HEENT: Pupils equal and round no injection. Oropharynx without redness or exudate, mucous membranes are moist Respiratory: Chest is non tender, lungs are clear to auscultation. Cardiac: regular rate and rhythm Gastrointestinal: Abdomen is soft, moderate suprapubic tenderness, no masses, bowel sounds normal., Positive right CVA tenderness Musculoskeletal: Neck: Neck is supple and non tender. Extremities have full range of motion and are non tender. Skin: No rashes or lesions. DIFFERENTIAL DIAGNOSIS: After history and physical exam differential diagnosis was considered for abdominal pain including but not limited to appendicitis, cholecystitis, gastritis and urinary tract infection. Additionally, lower GI bleeding including but not limited to diverticulosis, tumor, AVM, hemorrhoid and anal fissure. Medical Decision Making Data Points Result Diagram: 04/14/[id number]/[id number] Laboratory Hematology Test 04/14/17 21:30 04/14/17 21:35 Urine Color Straw Urine Clarity Slightly-cloudy Urine pH 5.0 pH (4.8-9.5) Urine Specific [place] 1.013 Urine Protein Negative mg/dL (NEGATIVE) Urine Glucose (UA) Negative mg/dL (NEGATIVE) Urine Ketones 20 mg/dL (NEGATIVE) Urine Blood Small (NEGATIVE) Urine Nitrite Negative (NEGATIVE) Urine Bilirubin Negative (NEGATIVE) Urine Urobilinogen Negative mg/dL (0.2-1.9) Urine Leukocyte Esterase Negative (NEGATIVE) Urine RBC <1 /HPF (0-2/HPF) Urine WBC 2 /HPF (0-5/HPF) Urine Squamous Epithelial Cells Many /LPF (</=FEW) Urine Bacteria Few /HPF (NONE-FEW) Urine Mucus Few /HPF (NONE-FEW) Red Blood Count 4.50 M/uL (4.17-5.56) Mean Corpuscular Volume 93.5 fL (80.0-96.0) Mean Corpuscular Hemoglobin 32.8 pg (26.0-33.0) Mean Corpuscular Hemoglobin Concent 35.1 g/dL (32.0-36.0) Red Cell Distribution Width 13.1 % (11.5-14.5) Mean Platelet Volume 6.5 fL (7.2-11.1) Neutrophils (%) (Auto) 53.0 % (39.4-72.5) Lymphocytes (%) (Auto) 33.5 % (17.6-49.6) Monocytes (%) (Auto) 10.9 % (4.1-12.4) Eosinophils (%) (Auto) 1.7 % (0.4-6.7) Basophils (%) (Auto) 0.9 % (0.3-1.4) Nucleated RBC Relative Count (auto) 0.1 /100WBC Neutrophils # (Auto) 4.4 K/uL (2.0-7.4) Lymphocytes # (Auto) 2.8 K/uL (1.3-3.6) Monocytes # (Auto) 0.9 K/uL (0.3-1.0) Eosinophils # (Auto) 0.1 K/uL (0.0-0.5) Basophils # (Auto) 0.1 K/uL (0.0-0.1) Nucleated RBC Absolute Count (auto) 0.01 K/uL Sodium Level 139 mmol/L (137-145) Potassium Level 3.6 mmol/L (3.5-5.0) Chloride Level 107 mmol/L (98-107) Carbon Dioxide Level 19 mmol/L (22-31) Blood Urea Nitrogen 13 mg/dl (7-18) Creatinine 0.90 mg/dl (0.52-1.04) Glomerular Filtration Rate Calc > 60.0 Random Glucose 76 mg/dl (75-110) Calcium Level 8.9 mg/dl (8.4-10.2) Total Bilirubin 0.2 mg/dl (0.2-1.3) Aspartate Amino Transf (AST/SGOT) 21 U/L (0-35) Alanine Aminotransferase (ALT/SGPT) 32 U/L (0-56) Alkaline Phosphatase 76 U/L (0-126) Total Protein 6.6 gm/dl (6.3-8.2) Albumin 3.9 g/dl (3.5-5.0) Amylase Level 81 U/L (0-110) Lipase 135 U/L (23-300) Human Chorionic Gonadotropin, Qual Negative (NEGATIVE) Chemistry Test 04/14/17 21:30 04/14/17 21:35 Urine Color Straw Urine Clarity Slightly-cloudy Urine pH 5.0 pH (4.8-9.5) Urine Specific [place] 1.013 Urine Protein Negative mg/dL (NEGATIVE) Urine Glucose (UA) Negative mg/dL (NEGATIVE) Urine Ketones 20 mg/dL (NEGATIVE) Urine Blood Small (NEGATIVE) Urine Nitrite Negative (NEGATIVE) Urine Bilirubin Negative (NEGATIVE) Urine Urobilinogen Negative mg/dL (0.2-1.9) Urine Leukocyte Esterase Negative (NEGATIVE) Urine RBC <1 /HPF (0-2/HPF) Urine WBC 2 /HPF (0-5/HPF) Urine Squamous Epithelial Cells Many /LPF (</=FEW) Urine Bacteria Few /HPF (NONE-FEW) Urine Mucus Few /HPF (NONE-FEW) White Blood Count 8.3 k/uL (4.5-11.0) Red Blood Count 4.50 M/uL (4.17-5.56) Hemoglobin 14.8 g/dL (12.0-16.0) Hematocrit 42.0 % (34.0-47.0) Mean Corpuscular Volume 93.5 fL (80.0-96.0) Mean Corpuscular Hemoglobin 32.8 pg (26.0-33.0) Mean Corpuscular Hemoglobin Concent 35.1 g/dL (32.0-36.0) Red Cell Distribution Width 13.1 % (11.5-14.5) Platelet Count 252 K/uL (150-450) Mean Platelet Volume 6.5 fL (7.2-11.1) Neutrophils (%) (Auto) 53.0 % (39.4-72.5) Lymphocytes (%) (Auto) 33.5 % (17.6-49.6) Monocytes (%) (Auto) 10.9 % (4.1-12.4) Eosinophils (%) (Auto) 1.7 % (0.4-6.7) Basophils (%) (Auto) 0.9 % (0.3-1.4) Nucleated RBC Relative Count (auto) 0.1 /100WBC Neutrophils # (Auto) 4.4 K/uL (2.0-7.4) Lymphocytes # (Auto) 2.8 K/uL (1.3-3.6) Monocytes # (Auto) 0.9 K/uL (0.3-1.0) Eosinophils # (Auto) 0.1 K/uL (0.0-0.5) Basophils # (Auto) 0.1 K/uL (0.0-0.1) Nucleated RBC Absolute Count (auto) 0.01 K/uL Glomerular Filtration Rate Calc > 60.0 Calcium Level 8.9 mg/dl (8.4-10.2) Total Bilirubin 0.2 mg/dl (0.2-1.3) Aspartate Amino Transf (AST/SGOT) 21 U/L (0-35) Alanine Aminotransferase (ALT/SGPT) 32 U/L (0-56) Alkaline Phosphatase 76 U/L (0-126) Total Protein 6.6 gm/dl (6.3-8.2) Albumin 3.9 g/dl (3.5-5.0) Amylase Level 81 U/L (0-110) Lipase 135 U/L (23-300) Human Chorionic Gonadotropin, Qual Negative (NEGATIVE) Urinalysis Test 04/14/17 21:30 Urine Color Straw Urine Clarity Slightly-cloudy Urine pH 5.0 pH (4.8-9.5) Urine Specific [place] 1.013 Urine Protein Negative mg/dL (NEGATIVE) Urine Glucose (UA) Negative mg/dL (NEGATIVE) Urine Ketones 20 mg/dL (NEGATIVE) Urine Blood Small (NEGATIVE) Urine Nitrite Negative (NEGATIVE) Urine Bilirubin Negative (NEGATIVE) Urine Urobilinogen Negative mg/dL (0.2-1.9) Urine Leukocyte Esterase Negative (NEGATIVE) Urine RBC <1 /HPF (0-2/HPF) Urine WBC 2 /HPF (0-5/HPF) Urine Squamous Epithelial Cells Many /LPF (</=FEW) Urine Bacteria Few /HPF (NONE-FEW) Urine Mucus Few /HPF (NONE-FEW) ED Course/Re-evaluation Clinical Indication for ER IV: Hydration, IV Access ED Course Patient was admitted to an examination room. H&P was done. The diagnosis was considered. Patient was seen earlier today for an extensive evaluation including a CT scan that was unremarkable. Her H&H is stable. Patient's treated with IV fluids, Zofran and fentanyl. Repeat diagnostic laboratory studies are unremarkable for an elevated white blood cell count. Her H&H is higher than it was on the previous visit. test is negative. Urinalysis is unremarkable. Patient's discharged home and advised a clear liquid diet for 48 hours. She's given Phenergan for nausea and tramadol for pain relief. Patient advised to follow-up with her GI specialist as planned on Saturday. Decision to Disposition Date: Apr 14, 2017 Decision to Disposition Time: 22:45 Depart Departure Latest Vital Signs Vital Signs Date Time Temp Pulse Resp B/P (MAP) Pulse Ox O2 Delivery O2 Flow Rate FiO2 04/14/17 22:45 98 93 04/14/17 21:34 99.6 16 147/87 Room Air Impression: Primary Impression: Abdominal pain Additional Impressions: Nausea & vomiting Rectal bleeding Condition: Improved Disposition: HOME OR SELF-CARE Referrals: LEELA CAMPBELL (PCP) New Scripts Ondansetron Hcl (ZOFRAN) 4 Mg Tablet 4 MG PO Q6H Y for NAUSEA/VOMITING, #12 Prov: SIOMARA BERGER DO 04/14/17 Promethazine Hcl (PROMETHAZINE HCL) 25 Mg Tablet 25 MG PO Q4H Y for NAUSEA/VOMITING, #14 TAB Prov: SIOMARA BERGER DO 04/14/17 Tramadol Hcl (TRAMADOL HCL) 50 Mg Tablet 1 TAB PO Q6H Y for PAIN, #15 MG TAKE ONE TABLETS BY MOUTH EVERY SIX HOURS NEEDED Prov: SIOMARA BERGER DO 04/14/17 Patient Instructions: Abdominal Pain (ED), Clear Liquid Diet (ED) Additional Instructions: Follow clear liquid diet for 48 hours Follow-up with your GI specialist as planned on Saturday Return to the ER for any worsening Problem Qualifiers Primary Impression: Abdominal pain Abdominal location: right upper quadrant Qualified Codes: R10.11 - Right upper quadrant pain Additional Impressions: Nausea & vomiting Vomiting type: unspecified Vomiting Intractability: intractable Qualified Codes: R11.2 - Nausea with vomiting, unspecified SIOMARA BERGER DO Apr 14, 2017 21:32
[2017-04-14 21:34] VITALS: BP 147/87
[2017-04-14] MEDS ORDERED: NS(*) 0.9% 1000 ML BAG 1,000 ML IV ONE (21:38)
[2017-04-14] MEDS ORDERED: ONDANSETRON 4 MG/2 ML VIAL IVP ONE (21:40)
[2017-04-14 21:47] LABS: PLATELET COUNT, AUTOMATED 252 K/uL (150-450)
[2017-04-14] MEDS ORDERED: fentaNYL CITR 100 MCG/2 ML AMP IVP ONE (21:50)
[2017-04-14] MEDS ORDERED: TRAM-420 PO (22:48)
[2017-04-14] MEDS ORDERED: PROM-110 PO (22:48)
[2017-04-14] MEDS ORDERED: ONDA4TAB97 PO (22:48)
[2017-04-14] MEDS ORDERED: traMADol 50 MG TAB TH 2 TAB/BOTTLE PO ONE (22:50)
[2017-04-14] MEDS ORDERED: PROMETHAZINE HCL 25 MG TAB TH 2 TAB/BOTTLE PO ONE (22:50)
== END 2017-04-14 23:20 | disposition home or self-care (01) ==
LOC: ER 21:33
DX: R10.11 Right upper quadrant pain (principal); R11.2 Nausea with vomiting, unspecified; K62.5 Hemorrhage of anus and rectum
CPT/HCPCS: 81001; 82150; 83690; 84703; 85025; 96361; 96374; 96375; 99283; C9399; J2405; J3010; J7030; 82040; 82247; 82310; 82374; 82435; 82565; 82947; 84075; 84132; 84155; 84295; 84450; 84460; 84520

== ENCOUNTER 2017-05-01 18:36 | Emergency (ER) | payer BC ==
--- NOTE | 2017-05-01 18:38 | ER Report ---
History and Physical Time Seen By MD: 18:38 HPI/ROS CHIEF COMPLAINT: Allergic reaction HISTORY OF PRESENT ILLNESS: 22-year-old female with a known history of allergic reactions. She has numerous food sensitivities. She carries an EpiPen. She was having a salad. She apparently missed one the ingredients on the salad dressing. Approximately 12 minutes prior to arrival. She began to have some throat swelling sensation. She used her epinephrine pen. And presented to the ER. She notes she is feeling better after the EpiPen. She having a hoarse voice, trouble speaking. Patient's well-known to our ER from previous allergic reactions. REVIEW OF SYSTEMS: Respiratory: As above Cardiovascular: No chest pain, no palpitations. Gastrointestinal: No vomiting, no abdominal pain. Musculoskeletal: No back pain. Allergies: Coded Allergies: pork derived (porcine) (Verified Allergy, Severe, 04/14/17) anaphylaxis soy (Verified Allergy, Severe, 04/14/17) anaphylaxis Uncoded Allergies: beans (Allergy, Severe, 11/22/13) anaphylaxis turkey (Allergy, Mild, cramps, 12/22/13) Home Meds Active Scripts Epinephrine (EPIPEN 2-JEMMA) 0.3 Mg/0.3 Ml Pen.injctr, 0.3 MG IM PRN Y for allergic reaction, #1 Prov:SIOMARA BERGER DO 05/01/17 Prednisone 10 Mg Tab (PREDNISONE 10 MG TAB) 10 Mg Tablet, 10 MG PO QDAY Y for prevention of allergic reactio, #6 2 tabs daily for 2 days 1 tab daily for 2 days Prov:SIOMARA BERGER DO 05/01/17 Epinephrine (EPIPEN 2-JEMMA) 0.3 Mg/0.3 Ml Pen.injctr, 0.3 MG IM DIRECTED, #1 PACK 0 Refills Prov:VICENTE LU MD 04/06/17 Reported Medications Escitalopram Oxalate (LEXAPRO) 20 Mg Tablet, 10 MG PO QDAY, TAB 05/01/17 Discontinued Reported Medications Bupropion Hcl (WELLBUTRIN SR) 100 Mg Tablet.er, 100 MG PO QDAY, TAB 03/31/17 Discontinued Scripts Ondansetron Hcl (ZOFRAN) 4 Mg Tablet, 4 MG PO Q6H Y for NAUSEA/VOMITING, #12 Prov:SIOMARA BERGER DO 04/14/17 Promethazine Hcl (PROMETHAZINE HCL) 25 Mg Tablet, 25 MG PO Q4H Y for NAUSEA/ VOMITING, #14 TAB Prov:SIOMARA BERGER DO 04/14/17 Tramadol Hcl (TRAMADOL HCL) 50 Mg Tablet, 1 TAB PO Q6H Y for PAIN, #15 MG TAKE ONE TABLETS BY MOUTH EVERY SIX HOURS NEEDED Prov:SIOMARA BERGER DO 04/14/17 Reviewed Nurses Notes: Yes Old Medical Records Reviewed: Yes Hx Smoking: Yes (SMOKED 1/2 PPD FOR 1.5 YEARS) Smoking Status: Former Smoker Exposure to Second Hand Smoke?: Yes Hx Substance Use Disorder: No Hx Alcohol Use: No Constitutional Vital Sign - Last 24 Hours 05/01/17 05/01/17 05/01/17 05/01/17 18:39 18:41 18:44 18:45 Temp 97.8 Pulse 109 Resp 18 B/P (MAP) 133/74 (93) 133/74 Pulse Ox 97 100 96 O2 Delivery Room Air Room Air 05/01/17 05/01/17 05/01/17 05/01/17 18:45 18:46 18:49 18:51 Pulse 88 97 87 89 Resp 20 20 Pulse Ox 97 05/01/17 05/01/17 05/01/17 05/01/17 18:56 19:00 19:01 19:06 Pulse 105 ??? 110 B/P (MAP) 127/85 (99) Pulse Ox 97 99 99 05/01/17 05/01/17 05/01/17 05/01/17 19:11 19:16 19:21 19:30 Pulse 105 105 102 B/P (MAP) 129/69 (89) Pulse Ox 100 94 05/01/17 19:31 Pulse 105 Pulse Ox 99 Physical Exam Vital signs stable, pulse ox normal General Appearance: The patient is alert, has no immediate need for airway protection and no current signs of toxicity. Mild respiratory distress, hoarse voice HEENT: Pupils equal and round no injection. TMs normal, oropharynx with mild edema Respiratory: Chest is non tender, lungs are clear to auscultation. Decreased breath sounds throughout, no expiratory wheezing Cardiac: regular rate and rhythm Gastrointestinal: Abdomen is soft and non tender, no masses, bowel sounds normal. Musculoskeletal: Neck: Neck is supple and non tender. Extremities have full range of motion and are non tender. Skin: No rashes or lesions. DIFFERENTIAL DIAGNOSIS: After history and physical exam differential diagnosis was considered for allergic reaction, anaphylaxis, urticaria, bronchospasm, hypotension Medical Decision Making ED Course/Re-evaluation Clinical Indication for ER IV: IV Access ED Course Patient was admitted to an examination room. H&P was done. The differential diagnoses was considered. Patient was expressing mild reaction when she arrived. There is no flushing of her skin. Her vitals are stable. She was having trouble speaking. Patient was treated with IV Solu-Medrol, Benadryl and Pepcid. She received a DuoNeb. She was monitored for one hour. Her allergic reaction symptoms are resolving. She felt comfortable going home. Her EpiPen was refilled. She is advised Benadryl 25 mg 3 times daily. She's given a low- dose prednisone taper. Patient advised to return to the ER for any worsening Decision to Disposition Date: May 01, 2017 Decision to Disposition Time: 19:00 Depart Departure Latest Vital Signs Vital Signs Date Time Temp Pulse Resp B/P (MAP) Pulse Ox O2 Delivery O2 Flow Rate FiO2 05/01/17 19:31 105 99 05/01/17 19:30 129/69 (89) 05/01/17 18:49 20 05/01/17 18:45 Room Air 05/01/17 18:44 97.8 Impression: Primary Impression: Allergic reaction Additional Impression: Anaphylactic reaction Condition: Improved Disposition: HOME OR SELF-CARE Referrals: LEELA CAMPBELL (PCP) New Scripts Epinephrine (EPIPEN 2-JEMMA) 0.3 Mg/0.3 Ml Pen.injctr 0.3 MG IM PRN Y for allergic reaction, #1 Prov: SIOMARA BERGER DO 05/01/17 Prednisone 10 Mg Tab (PREDNISONE 10 MG TAB) 10 Mg Tablet 10 MG PO QDAY Y for prevention of allergic reactio, #6 2 tabs daily for 2 days 1 tab daily for 2 days Prov: SIOMARA BERGER DO 05/01/17 Patient Instructions: Anaphylaxis (ED), General Allergic Reaction (ED) Additional Instructions: Continue Benadryl 25 mg 3 times daily for itching Take prednisone taper as prescribed Follow-up with primary care if unimproved in 3-5 days Return to the ER for any worsening Problem Qualifiers Primary Impression: Allergic reaction Encounter type: initial encounter Qualified Codes: T78.40XA - Allergy, unspecified, initial encounter Additional Impression: Anaphylactic reaction Encounter type: initial encounter Qualified Codes: T78.2XXA - Anaphylactic shock, unspecified, initial encounter SIOMARA BERGER DO May 01, 2017 18:38
[2017-05-01] MEDS ORDERED: ANAPHYLAXIS KIT 1 EA ONE (18:39)
[2017-05-01] MEDS ORDERED: ALBUTEROL/IPRATROPIUM 3 ML NEB NEB ONE (18:40)
[2017-05-01] MEDS ORDERED: FAMOTIDINE 20 MG TAB PO ONE (18:40)
[2017-05-01] MEDS ORDERED: methylPREDNIS SUCC 125 MG/2ML IVP ONE (18:40)
[2017-05-01] MEDS ORDERED: diphenhydrAMINE 50 MG/ML VIAL IVP ONE (18:40)
[2017-05-01] MEDS ORDERED: ESCI20TA38 PO (19:00)
[2017-05-01] MEDS ORDERED: EPIN0.3P15 IM (19:25)
[2017-05-01] MEDS ORDERED: PRED-1 PO (19:25)
[2017-05-01 19:30] VITALS: BP 129/69
== END 2017-05-01 19:50 | disposition home or self-care (01) ==
LOC: ER 18:53
DX: T78.2XXA Anaphylactic shock, unspecified, initial encounter (principal)
CPT/HCPCS: 94640; 96374; 96375; 99284; J1200; J2930; J7620

== ENCOUNTER 2017-05-08 23:35 | Emergency (ER) | payer BC ==
--- NOTE | 2017-05-08 23:44 | ER Report ---
History and Physical Time Seen By MD: 23:43 HPI/ROS CHIEF COMPLAINT: Allergic reaction HISTORY OF PRESENT ILLNESS: 22-year-old female brought in by EMS after having an allergic reaction. She received epinephrine, Benadryl by EMS. Supplemental O2 as well. Patient was seen here approximately one week ago with similar presentation of allergic reaction. She got a hold of some salad dressing with an allergen in. Patient was not eating anything that she thought she might be allergic to. She had spontaneous symptoms. EMS administered EpiPen. She is much improved on arrival. She fairly somnolent from the Benadryl. She notes no throat causing sensation. She has no wheezing on examination. REVIEW OF SYSTEMS: Respiratory: As above Cardiovascular: No chest pain, no palpitations. Gastrointestinal: No vomiting, no abdominal pain. Musculoskeletal: No back pain. Allergies: Coded Allergies: pork derived (porcine) (Verified Allergy, Severe, 04/14/17) anaphylaxis soy (Verified Allergy, Severe, 04/14/17) anaphylaxis Uncoded Allergies: beans (Allergy, Severe, 11/22/13) anaphylaxis turkey (Allergy, Mild, cramps, 12/22/13) Home Meds Active Scripts Epinephrine (EPIPEN 2-JEMMA) 0.3 Mg/0.3 Ml Pen.injctr, 0.3 MG IM PRN Y for allergic reaction, #1 Prov:SIOMARA BERGER DO 05/01/17 Reported Medications Escitalopram Oxalate (LEXAPRO) 20 Mg Tablet, 10 MG PO QDAY, TAB 05/01/17 Discontinued Scripts Lorazepam (ATIVAN) 1 Mg Tablet, 1 MG PO Q6-8H Y for ANXIETY, #12 Prov:SIOMARA BERGER DO 05/09/17 Prednisone 10 Mg Tab (PREDNISONE 10 MG TAB) 10 Mg Tablet, 10 MG PO QDAY Y for prevention of allergic reactio, #6 2 tabs daily for 2 days 1 tab daily for 2 days Prov:SIOMARA BERGER DO 05/01/17 Epinephrine (EPIPEN 2-JEMMA) 0.3 Mg/0.3 Ml Pen.injctr, 0.3 MG IM DIRECTED, #1 PACK 0 Refills Prov:VICENTE LU MD 04/06/17 Reviewed Nurses Notes: Yes Old Medical Records Reviewed: Yes Hx Smoking: Yes (SMOKED 1/2 PPD FOR 1.5 YEARS) Smoking Status: Former Smoker Exposure to Second Hand Smoke?: Yes Hx Substance Use Disorder: No Hx Alcohol Use: No Constitutional Vital Sign - Last 24 Hours 05/08/17 05/08/17 05/09/17 05/09/17 23:48 23:50 00:00 00:05 Pulse 100 80 B/P (MAP) 134/55 (81) 112/64 (80) Pulse Ox 97 96 05/09/17 05/09/17 05/09/17 05/09/17 00:10 00:15 00:20 00:25 Pulse 85 81 81 83 Pulse Ox 96 97 94 94 05/09/17 05/09/17 00:30 01:30 Pulse 77 Resp 19 16 B/P (MAP) 112/55 (74) Pulse Ox 95 95 O2 Delivery Room Air Physical Exam Vital signs stable, afebrile, pulse ox normal General Appearance: The patient is alert, has no immediate need for airway protection and no current signs of toxicity. Sleepy and somnolent from Benadryl. HEENT: Pupils equal and round no injection. Oropharynx without edema or redness Respiratory: Chest is non tender, lungs are clear to auscultation. No wheezing Cardiac: regular rate and rhythm Gastrointestinal: Abdomen is soft and non tender, no masses, bowel sounds normal. Musculoskeletal: Neck: Neck is supple and non tender. Extremities have full range of motion and are non tender. Skin: No rashes or lesions. No flushing or hives DIFFERENTIAL DIAGNOSIS: After history and physical exam differential diagnosis was considered for allergic reaction, anaphylaxis, anxiety attack, urticaria Medical Decision Making EKG/Imaging EKG Interpretation 12 lead EK Rhythm: normal sinus rhythm [place]: normal QRS: normal, prolonged QT, interval ST segments: normal, no evidence of ischemia or dysrhythmia ED Course/Re-evaluation Clinical Indication for ER IV: IV Access ED Course Patient was admitted to an examination room. H&P was done. The differential diagnoses was considered. On clinical examination. Patient has reversal of her allergic symptoms after epinephrine and Benadryl per EMS. She is monitored for 60 minutes without adverse effects. Her symptoms seem primarily anxiety in nature. Patient would like to go home. I offered her prednisone taper. She declined. She states she has not filled epi-pen prescription that I provided last visit. Patient advised to return to the ER for any worsening. Decision to Disposition Date: May 09, 2017 Decision to Disposition Time: 00:01 Depart Departure Latest Vital Signs Vital Signs Date Time Temp Pulse Resp B/P (MAP) Pulse Ox O2 Delivery O2 Flow Rate FiO2 05/09/17 01:30 77 16 112/55 (74) 95 Room Air Impression: Primary Impression: Allergic reaction Condition: Improved Disposition: HOME OR SELF-CARE Referrals: LEELA CAMPBELL (PCP) Patient Instructions: General Allergic Reaction (ED) Additional Instructions: Take Benadryl 25 mg as needed 3 times daily for itching or allergic symptoms Follow-up with your primary care physician if unimproved in 3-5 days Return to the ER for any worsening Problem Qualifiers Primary Impression: Allergic reaction Encounter type: initial encounter Qualified Codes: T78.40XA - Allergy, unspecified, initial encounter SIOMARA BERGER DO May 08, 2017 23:44
[2017-05-09] MEDS ORDERED: LORA-1456 PO (00:06)
[2017-05-09 01:30] VITALS: BP 112/55
== END 2017-05-09 01:29 | disposition home or self-care (01) ==
LOC: ER 23:47
DX: T78.40XA Allergy, unspecified, initial encounter (principal)
CPT/HCPCS: 99284

== ENCOUNTER → 2017-05-08 | Outpatient (CLI) | payer BC ==
[~2017-05-08] MED LIST changes: +ESCI20TA38 PO
== END ==
LOC: AMB 23:17
PROVIDERS: ATTEND Nurse Practitioner
DX: T78.2XXA Anaphylactic shock, unspecified, initial encounter (principal); R11.10 Vomiting, unspecified
CPT/HCPCS: A0425; A0427

== ENCOUNTER 2017-05-27 11:48 | Emergency (ER) | payer BC ==
--- NOTE | 2017-05-27 11:52 | ER Report ---
History and Physical Time Seen By MD: 11:51 HPI/ROS CHIEF COMPLAINT: Situational depression HISTORY OF PRESENT ILLNESS: Patient is a 22-year-old female with multiple medical problems who presents to the emergency department for evaluation of depression. Apparently her fianc broke up with her and called off the wedding today that is supposed to happen an approximate 16 days. She is feeling very anxious and depressed about this she has self inflicted some scratches to her arms and her neck. She states that she feels as if she has to "hurt herself" she denies feeling suicidal or that she wants to actually kill herself or anyone else. Patient does have a history of depression but never had a history of suicidal ideation. She has no prior [facility] admissions. REVIEW OF SYSTEMS: Constitutional: No fever, no chills. Eyes: No discharge. ENT: No sore throat. Cardiovascular: No chest pain, no palpitations. Respiratory: No cough, no shortness of breath. Gastrointestinal: No abdominal pain, no vomiting. Genitourinary: No hematuria. Musculoskeletal: No back pain. Skin: No rashes. Neurological: No headache. Psychiatric: Depressed, no suicidal or homicidal ideation. Allergies: Coded Allergies: pork derived (porcine) (Verified Allergy, Severe, 05/27/17) anaphylaxis soy (Verified Allergy, Severe, 05/27/17) anaphylaxis Uncoded Allergies: beans (Allergy, Severe, 11/22/13) anaphylaxis turkey (Allergy, Mild, cramps, 12/22/13) Home Meds Active Scripts Epinephrine (EPIPEN 2-JEMMA) 0.3 Mg/0.3 Ml Pen.injctr, 0.3 MG IM PRN Y for allergic reaction, #1 Prov:SIOMARA BERGER DO 05/01/17 Reported Medications Escitalopram Oxalate (LEXAPRO) 20 Mg Tablet, 10 MG PO QDAY, TAB 05/01/17 Past Medical/Surgical History Irritable bowel syndrome, polycystic ovarian syndrome, history of kidney stones , exercised induced asthma, depression and anxiety. Surgeries include lipoma removal, tonsils, was to him teeth. Colonoscopies and EGDs Hx Smoking: Yes (SMOKED 1/2 PPD FOR 1.5 YEARS) Smoking Status: Former Smoker Exposure to Second Hand Smoke?: Yes Hx Substance Use Disorder: No Hx Alcohol Use: No Constitutional Vital Sign - Last 24 Hours 05/27/17 05/27/17 05/27/17 05/27/17 11:55 11:59 12:03 12:18 Temp 98.9 Pulse 89 94 91 Resp 16 B/P (MAP) 126/89 126/89 (101) Pulse Ox 95 97 97 O2 Delivery Room Air 05/27/17 05/27/17 12:23 12:59 Pulse 105 90 B/P (MAP) 125/88 (100) Pulse Ox 92 95 Physical Exam General/Constitutional: Patient is awake, alert, nontoxic and in no acute respiratory distress. Head: Normocephalic and atraumatic. Eyes: Conjunctival clear, Pupils are equal and reactive to light. Extraocular muscles are intact and symmetrical. Sclera are clear and anicteric. Ears:External canals are clear. Tympanic membranes are clear with normal landmarks and light reflex. Nares: No rhinorrhea or bleeding. Turbinates are pink and moist. Oropharyngeal: Mucous membranes are moist. There is no pharyngeal erythema or exudate. There are no palatal petechiae. Uvula is midline and symmetrical. Neck: Supple, no adenopathy. Cardiovascular: Heart is regular rate and rhythm without audible murmurs, rubs or gallops. Pulmonary: Lungs are clear to auscultation bilaterally. There are no wheezes, rales, or rhonchi. Chest rise is symmetrical Abdomen: Soft, nontender, no guarding or peritoneal signs. Extremities: No gross deformities, No peripheral cyanosis. Able to move all 4 extremities. Neuro: Alert and oriented X3, Cranial nerves 2 thru 12 are intact and symmetrical. Patient has normal gait. Skin: No rashes, skin is warm dry and well perfused. Psychiatric: Patient is anxious and tearful. She states she feels like "hurting herself" but does not want to kill herself. Her mood is anxious and depressed which is congruent with her affect. Patient stopped process is logical and goal- directed. Patient does not seem to be responding to any internal stimuli. Medical Decision Making Data Points Result Diagram: 05/27/17 1204 05/27/17 1204 Laboratory Hematology Test 05/27/17 11:52 05/27/17 12:04 Urine Color Straw Urine Clarity Clear Urine pH 5.0 pH (4.8-9.5) Urine Specific [place] 1.010 Urine Protein Negative mg/dL (NEGATIVE) Urine Glucose (UA) Negative mg/dL (NEGATIVE) Urine Ketones Negative mg/dL (NEGATIVE) Urine Blood Negative (NEGATIVE) Urine Nitrite Negative (NEGATIVE) Urine Bilirubin Negative (NEGATIVE) Urine Urobilinogen Negative mg/dL (0.2-1.9) Urine Leukocyte Esterase Negative (NEGATIVE) Urine RBC None /HPF (0-2/HPF) Urine WBC 1 /HPF (0-5/HPF) Urine Squamous Epithelial Cells Many /LPF (</=FEW) Urine Bacteria Negative /HPF (NONE-FEW) Urine Mucus None /HPF (NONE-FEW) Urine HCG, Qualitative Negative (NEGATIVE) Urine Opiates Screen Negative Urine Barbiturates Screen Negative Ur Tricyclic Antidepressants Screen Negative Urine Phencyclidine Screen Negative Urine Amphetamines Screen Negative Urine Benzodiazepines Screen Negative Urine Cocaine Screen Negative Urine Cannabinoids Screen Negative Red Blood Count 4.66 M/uL (4.17-5.56) Mean Corpuscular Volume 94.5 fL (80.0-96.0) Mean Corpuscular Hemoglobin 33.1 pg (26.0-33.0) Mean Corpuscular Hemoglobin Concent 35.0 g/dL (32.0-36.0) Red Cell Distribution Width 13.3 % (11.5-14.5) Mean Platelet Volume 6.6 fL (7.2-11.1) Neutrophils (%) (Auto) 76.9 % (39.4-72.5) Lymphocytes (%) (Auto) 14.3 % (17.6-49.6) Monocytes (%) (Auto) 8.2 % (4.1-12.4) Eosinophils (%) (Auto) 0.4 % (0.4-6.7) Basophils (%) (Auto) 0.2 % (0.3-1.4) Nucleated RBC Relative Count (auto) 0.0 /100WBC Neutrophils # (Auto) 5.6 K/uL (2.0-7.4) Lymphocytes # (Auto) 1.0 K/uL (1.3-3.6) Monocytes # (Auto) 0.6 K/uL (0.3-1.0) Eosinophils # (Auto) 0.0 K/uL (0.0-0.5) Basophils # (Auto) 0.0 K/uL (0.0-0.1) Nucleated RBC Absolute Count (auto) 0.00 K/uL Sodium Level 138 mmol/L (137-145) Potassium Level 3.9 mmol/L (3.5-5.0) Chloride Level 107 mmol/L (98-107) Carbon Dioxide Level 21 mmol/L (22-31) Blood Urea Nitrogen 16 mg/dl (7-18) Creatinine 0.80 mg/dl (0.52-1.04) Glomerular Filtration Rate Calc > 60.0 Random Glucose 97 mg/dl (75-110) Calcium Level 9.4 mg/dl (8.4-10.2) Magnesium Level 1.9 mg/dl (1.7-2.2) Total Bilirubin 0.6 mg/dl (0.2-1.3) Aspartate Amino Transf (AST/SGOT) 22 U/L (0-35) Alanine Aminotransferase (ALT/SGPT) 35 U/L (0-56) Alkaline Phosphatase 79 U/L (0-126) Total Protein 7.2 gm/dl (6.3-8.2) Albumin 4.3 g/dl (3.5-5.0) Salicylates Level < 10 mg/L Salicylate Last Dose Date unk Acetaminophen Level < 10 ug/ml Serum Alcohol < 10 mg/dl Chemistry Test 05/27/17 11:52 05/27/17 12:04 Urine Color Straw Urine Clarity Clear Urine pH 5.0 pH (4.8-9.5) Urine Specific [place] 1.010 Urine Protein Negative mg/dL (NEGATIVE) Urine Glucose (UA) Negative mg/dL (NEGATIVE) Urine Ketones Negative mg/dL (NEGATIVE) Urine Blood Negative (NEGATIVE) Urine Nitrite Negative (NEGATIVE) Urine Bilirubin Negative (NEGATIVE) Urine Urobilinogen Negative mg/dL (0.2-1.9) Urine Leukocyte Esterase Negative (NEGATIVE) Urine RBC None /HPF (0-2/HPF) Urine WBC 1 /HPF (0-5/HPF) Urine Squamous Epithelial Cells Many /LPF (</=FEW) Urine Bacteria Negative /HPF (NONE-FEW) Urine Mucus None /HPF (NONE-FEW) Urine HCG, Qualitative Negative (NEGATIVE) Urine Opiates Screen Negative Urine Barbiturates Screen Negative Ur Tricyclic Antidepressants Screen Negative Urine Phencyclidine Screen Negative Urine Amphetamines Screen Negative Urine Benzodiazepines Screen Negative Urine Cocaine Screen Negative Urine Cannabinoids Screen Negative White Blood Count 7.3 k/uL (4.5-11.0) Red Blood Count 4.66 M/uL (4.17-5.56) Hemoglobin 15.4 g/dL (12.0-16.0) Hematocrit 44.1 % (34.0-47.0) Mean Corpuscular Volume 94.5 fL (80.0-96.0) Mean Corpuscular Hemoglobin 33.1 pg (26.0-33.0) Mean Corpuscular Hemoglobin Concent 35.0 g/dL (32.0-36.0) Red Cell Distribution Width 13.3 % (11.5-14.5) Platelet Count 251 K/uL (150-450) Mean Platelet Volume 6.6 fL (7.2-11.1) Neutrophils (%) (Auto) 76.9 % (39.4-72.5) Lymphocytes (%) (Auto) 14.3 % (17.6-49.6) Monocytes (%) (Auto) 8.2 % (4.1-12.4) Eosinophils (%) (Auto) 0.4 % (0.4-6.7) Basophils (%) (Auto) 0.2 % (0.3-1.4) Nucleated RBC Relative Count (auto) 0.0 /100WBC Neutrophils # (Auto) 5.6 K/uL (2.0-7.4) Lymphocytes # (Auto) 1.0 K/uL (1.3-3.6) Monocytes # (Auto) 0.6 K/uL (0.3-1.0) Eosinophils # (Auto) 0.0 K/uL (0.0-0.5) Basophils # (Auto) 0.0 K/uL (0.0-0.1) Nucleated RBC Absolute Count (auto) 0.00 K/uL Glomerular Filtration Rate Calc > 60.0 Calcium Level 9.4 mg/dl (8.4-10.2) Magnesium Level 1.9 mg/dl (1.7-2.2) Total Bilirubin 0.6 mg/dl (0.2-1.3) Aspartate Amino Transf (AST/SGOT) 22 U/L (0-35) Alanine Aminotransferase (ALT/SGPT) 35 U/L (0-56) Alkaline Phosphatase 79 U/L (0-126) Total Protein 7.2 gm/dl (6.3-8.2) Albumin 4.3 g/dl (3.5-5.0) Salicylates Level < 10 mg/L Salicylate Last Dose Date unk Acetaminophen Level < 10 ug/ml Serum Alcohol < 10 mg/dl Toxicology Test 05/27/17 11:52 05/27/17 12:04 Urine Opiates Screen Negative Urine Barbiturates Screen Negative Ur Tricyclic Antidepressants Screen Negative Urine Phencyclidine Screen Negative Urine Amphetamines Screen Negative Urine Benzodiazepines Screen Negative Urine Cocaine Screen Negative Urine Cannabinoids Screen Negative Salicylates Level < 10 mg/L Salicylate Last Dose Date unk Acetaminophen Level < 10 ug/ml Serum Alcohol < 10 mg/dl Urinalysis Test 05/27/17 11:52 Urine Color Straw Urine Clarity Clear Urine pH 5.0 pH (4.8-9.5) Urine Specific [place] 1.010 Urine Protein Negative mg/dL (NEGATIVE) Urine Glucose (UA) Negative mg/dL (NEGATIVE) Urine Ketones Negative mg/dL (NEGATIVE) Urine Blood Negative (NEGATIVE) Urine Nitrite Negative (NEGATIVE) Urine Bilirubin Negative (NEGATIVE) Urine Urobilinogen Negative mg/dL (0.2-1.9) Urine Leukocyte Esterase Negative (NEGATIVE) Urine RBC None /HPF (0-2/HPF) Urine WBC 1 /HPF (0-5/HPF) Urine Squamous Epithelial Cells Many /LPF (</=FEW) Urine Bacteria Negative /HPF (NONE-FEW) Urine Mucus None /HPF (NONE-FEW) Urine HCG, Qualitative Negative (NEGATIVE) ED Course/Re-evaluation ED Course 05/27/2017 12:28:17 pm plan at this time will be to perform medical screening exam followed by [facility] evaluation. 05/27/2017 12:55:07 pm he should seen and evaluated by behavioral medicine there is no concern for inpatient admission at this time. Plan will be to discharge the patient with close follow-up. Patient did contract for safety. Decision to Disposition Date: May 27, 2017 Decision to Disposition Time: 12:54 Depart Departure Latest Vital Signs Vital Signs Date Time Temp Pulse Resp B/P (MAP) Pulse Ox O2 Delivery O2 Flow Rate FiO2 05/27/17 12:59 90 125/88 (100) 95 05/27/17 11:55 98.9 16 Room Air Impression: Primary Impression: Adjustment reaction Condition: Improved Disposition: HOME OR SELF-CARE Referrals: LEELA CAMPBELL (PCP) 2 Days If symptoms persist Patient Instructions: Anxiety (ED), Suicide Prevention for Adults (ED) Problem Qualifiers Primary Impression: Adjustment reaction Adjustment disorder type: with anxious mood Qualified Codes: F43.22 - Adjustment disorder with anxiety FABIOLA CANDELARIO MD May 27, 2017 11:51
[2017-05-27 12:29] LABS: PLATELET COUNT, AUTOMATED 251 K/uL (150-450)
--- NOTE | 2017-05-27 12:37 | EKG ---
FACILITY: [facility] - [place] PATIENT NAME: PAULO SARAH : [id number] MR: [id number] V: [id number] EXAM DATE: ORDERING PHYSICIAN: FABIOLA CANDELARIO TECHNOLOGIST: ERLINDA Test Reason : DISTRESS Blood Pressure : / mmHG Vent. Rate : 085 BPM Atrial Rate : 085 BPM P-R Int : 124 ms QRS Dur : 092 ms QT Int : 390 ms P-R-T Axes : 036 031 015 degrees QTc Int : 464 ms Normal sinus rhythm with sinus arrhythmia Normal ECG When compared with ECG of 14-APR-2017 02:42, No significant change was found Confirmed by BENITO JONES ([id number]) on 05/28/2017 6:29:58 AM Referred By: ANDREE Confirmed By:BENITO JONES
[2017-05-27 12:59] VITALS: BP 125/88
== END 2017-05-27 13:00 | disposition home or self-care (01) ==
LOC: ER 11:54
DX: F43.22 Adjustment disorder with anxiety (principal); I49.9 Cardiac arrhythmia, unspecified; X83.8XXA Intentional self-harm by other specified means, initial encounter
CPT/HCPCS: 36415; 80305; 80320; 80329; 81001; 81025; 82040; 82247; 82310; 82374; 82435; 82565; 82947; 83735; 84075; 84132; 84155; 84295; 84443; 84450; 84460; 84520; 85025; 93005; 99283

== ENCOUNTER → 2017-06-24 | Outpatient (REF) | payer BC ==
[~2017-06-24] MED LIST changes: -RANI-324 PO; +RANI-366 PO
== END ==
LOC: ZZSENDIN 20:36
PROVIDERS: ATTEND Physician Assistant
DX: R60.9 Edema, unspecified (principal); M79.604 Pain in right leg
CPT/HCPCS: 85379

== ENCOUNTER 2017-07-04 22:03 | Emergency (ER) | payer BC ==
--- NOTE | 2017-07-04 22:16 | ER Report ---
History and Physical Time Seen By MD: 22:15 Hx. of Stated Complaint: PT REPORTS THAT SHE THINKS THERE IS SOMETHING WRONG WITH HER IUD. HAS BEEN HAVING DISCOMFORT FOR ABOUT 6 HOURS. HPI/ROS CHIEF COMPLAINT: pelvic pain and vaginal bleeding HISTORY OF PRESENT ILLNESS: This is a 22 year old female. She had sudden onset of pain after intercourse last night. Has had some bleeding as well. She has a IUD and was worried that the pain and bleeding could be because of a problem with the IUD. She denies any problems previous to last night. Still having spotting. No discharge previously. Normal bowel and bladder. Allergies: Coded Allergies: pork derived (porcine) (Verified Allergy, Severe, 07/04/17) anaphylaxis soy (Verified Allergy, Severe, 07/04/17) anaphylaxis Uncoded Allergies: beans (Allergy, Severe, 11/22/13) anaphylaxis turkey (Allergy, Mild, cramps, 12/22/13) Home Meds Active Scripts Epinephrine (EPIPEN 2-JEMMA) 0.3 Mg/0.3 Ml Pen.injctr, 0.3 MG IM PRN Y for allergic reaction, #1 Prov:SIOMARA BERGER DO 05/01/17 Reported Medications Escitalopram Oxalate (LEXAPRO) 20 Mg Tablet, 10 MG PO QDAY, TAB 05/01/17 Reviewed Nurses Notes: Yes Hx Smoking: Yes (SMOKED 1/2 PPD FOR 1.5 YEARS) Smoking Status: Former Smoker Exposure to Second Hand Smoke?: Yes Hx Substance Use Disorder: No Hx Alcohol Use: No Constitutional Vital Sign - Last 24 Hours 07/04/17 07/04/17 07/04/17 07/04/17 22:08 22:15 22:30 23:00 Temp 97.5 Pulse 113 90 Resp 14 B/P (MAP) 108/72 110/68 (82) 111/68 (82) Pulse Ox 94 95 96 O2 Delivery Room Air 07/04/17 07/04/17 07/04/17 07/05/17 23:15 23:30 23:45 00:00 Pulse 93 101 84 B/P (MAP) 114/76 (89) 97/64 (75) Pulse Ox 98 97 95 95 07/05/17 07/05/17 00:15 00:28 Pulse 88 B/P (MAP) 105/70 (82) Pulse Ox 95 Physical Exam Pelvic exam: The vulva was normal no lesions. The vagina did not have significant discharge, no active bleeding at this time. The cervix was closed no bleeding and no purulent drainage. The IUD strings were present coming out of the cervix, IUD not visualized. The uterus was normal size, tender to palpation on bimanual exam, but no masses noted. The adnexa had no masses, diffuse bilateral tenderness on bimanual exam. The exam was performed with a lopper. Gastrointestinal: Some lower suprapubic tenderness, no other pain. Non- distended. No CVA tenderness with percussion. Respiratory: Breathing easily, no distress. General: Alert, anxious. Skin: no bruising or rashes. Musculoskeletal: No pain with palpation of the back. Medical Decision Making Data Points Result Diagram: 07/04/17222907/04/172229 Laboratory Hematology Test 07/04/17 22:30 Red Blood Count 4.63 M/uL (4.17-5.56) Mean Corpuscular Volume 95.2 fL (80.0-96.0) Mean Corpuscular Hemoglobin 32.9 pg (26.0-33.0) Mean Corpuscular Hemoglobin Concent 34.5 g/dL (32.0-36.0) Red Cell Distribution Width 13.0 % (11.5-14.5) Mean Platelet Volume 6.3 fL (7.2-11.1) Neutrophils (%) (Auto) 47.4 % (39.4-72.5) Lymphocytes (%) (Auto) 40.8 % (17.6-49.6) Monocytes (%) (Auto) 8.8 % (4.1-12.4) Eosinophils (%) (Auto) 2.4 % (0.4-6.7) Basophils (%) (Auto) 0.6 % (0.3-1.4) Nucleated RBC Relative Count (auto) 0.1 /100WBC Neutrophils # (Auto) 3.4 K/uL (2.0-7.4) Lymphocytes # (Auto) 2.9 K/uL (1.3-3.6) Monocytes # (Auto) 0.6 K/uL (0.3-1.0) Eosinophils # (Auto) 0.2 K/uL (0.0-0.5) Basophils # (Auto) 0.0 K/uL (0.0-0.1) Nucleated RBC Absolute Count (auto) 0.00 K/uL Prothrombin Time 13.3 seconds (12.0-14.4) Prothromb Time International Ratio 1.01 Activated Partial Thromboplast Time 26 seconds (23-35) Sodium Level 139 mmol/L (137-145) Potassium Level 3.8 mmol/L (3.5-5.0) Chloride Level 103 mmol/L (98-107) Carbon Dioxide Level 23 mmol/L (22-31) Blood Urea Nitrogen 17 mg/dl (7-18) Creatinine 0.90 mg/dl (0.52-1.04) Glomerular Filtration Rate Calc > 60.0 Random Glucose 102 mg/dl (75-110) Calcium Level 9.5 mg/dl (8.4-10.2) Total Bilirubin 0.3 mg/dl (0.2-1.3) Aspartate Amino Transf (AST/SGOT) 20 U/L (0-35) Alanine Aminotransferase (ALT/SGPT) 25 U/L (0-56) Alkaline Phosphatase 78 U/L (0-126) Total Protein 6.8 gm/dl (6.3-8.2) Albumin 4.1 g/dl (3.5-5.0) Human Chorionic Gonadotropin, Qual Negative (NEGATIVE) Chemistry Test 07/04/17 22:30 White Blood Count 7.2 k/uL (4.5-11.0) Red Blood Count 4.63 M/uL (4.17-5.56) Hemoglobin 15.2 g/dL (12.0-16.0) Hematocrit 44.1 % (34.0-47.0) Mean Corpuscular Volume 95.2 fL (80.0-96.0) Mean Corpuscular Hemoglobin 32.9 pg (26.0-33.0) Mean Corpuscular Hemoglobin Concent 34.5 g/dL (32.0-36.0) Red Cell Distribution Width 13.0 % (11.5-14.5) Platelet Count 269 K/uL (150-450) Mean Platelet Volume 6.3 fL (7.2-11.1) Neutrophils (%) (Auto) 47.4 % (39.4-72.5) Lymphocytes (%) (Auto) 40.8 % (17.6-49.6) Monocytes (%) (Auto) 8.8 % (4.1-12.4) Eosinophils (%) (Auto) 2.4 % (0.4-6.7) Basophils (%) (Auto) 0.6 % (0.3-1.4) Nucleated RBC Relative Count (auto) 0.1 /100WBC Neutrophils # (Auto) 3.4 K/uL (2.0-7.4) Lymphocytes # (Auto) 2.9 K/uL (1.3-3.6) Monocytes # (Auto) 0.6 K/uL (0.3-1.0) Eosinophils # (Auto) 0.2 K/uL (0.0-0.5) Basophils # (Auto) 0.0 K/uL (0.0-0.1) Nucleated RBC Absolute Count (auto) 0.00 K/uL Prothrombin Time 13.3 seconds (12.0-14.4) Prothromb Time International Ratio 1.01 Activated Partial Thromboplast Time 26 seconds (23-35) Glomerular Filtration Rate Calc > 60.0 Calcium Level 9.5 mg/dl (8.4-10.2) Total Bilirubin 0.3 mg/dl (0.2-1.3) Aspartate Amino Transf (AST/SGOT) 20 U/L (0-35) Alanine Aminotransferase (ALT/SGPT) 25 U/L (0-56) Alkaline Phosphatase 78 U/L (0-126) Total Protein 6.8 gm/dl (6.3-8.2) Albumin 4.1 g/dl (3.5-5.0) Human Chorionic Gonadotropin, Qual Negative (NEGATIVE) Coagulation Test 07/04/17 22:30 Prothrombin Time 13.3 seconds Prothromb Time International Ratio 1.01 Activated Partial Thromboplast Time 26 seconds EKG/Imaging Imaging Ultrasound of the pelvis: Indication: Pelvic pain and bleeding. Technique: Transabdominal and transvaginal imaging, with Doppler. A 3-D image of the uterus was also provided. Comparison: None. Uterus: Normal in size and shape, measuring, 6.5 x 3.8 x 2.9 cm. There is no evidence of uterine mass, calcification, or fluid. An IUD appears to be in satisfactory orientation within the endometrial cavity. The endometrial stripe measures 3 mm. Right ovary/adnexa: The right ovary measures 3.7 x 1.9 x 1.6 cm. Multiple small follicles are present. Doppler images demonstrate no evidence of torsion. No adnexal mass or fluid collection is identified. Left ovary/adnexa: The left ovary measures 3.4 x 2.4 x 2.0 cm. Multiple small follicles are present. Doppler images demonstrate no evidence of torsion. No adnexal mass or fluid collection is identified. Free fluid: None seen. IMPRESSION: The uterus appears unremarkable. An IUD appears to be in satisfactory orientation within the endometrial cavity. Report Dictated By: Je Roland MD at 07/05/2017 12:01 AM ED Course/Re-evaluation ED Course Labs unremarkable. Ultrasound negative as well. Reviewed all this with the patient. Home at this time and conservative measures with Tylenol or Ibuprofen for pain. Follow-up with [facility] recommended. Decision to Disposition Date: July 05, 2017 Decision to Disposition Time: 00:22 Depart Departure Latest Vital Signs Vital Signs Date Time Temp Pulse Resp B/P (MAP) Pulse Ox O2 Delivery O2 Flow Rate FiO2 07/05/17 00:28 105/70 (82) 07/05/17 00:15 88 95 07/04/17 22:08 97.5 14 Room Air Impression: Primary Impression: Dysmenorrhea Condition: Improved Disposition: HOME OR SELF-CARE Referrals: LEELA CAMPBELL (PCP) Patient Instructions: Dysmenorrhea (ED) Additional Instructions: Take Tylenol or Ibuprofen as needed for pain. Follow-up with your [facility]. VICENTE LU MD July 04, 2017 22:16
[2017-07-04 22:35] LABS: PLATELET COUNT, AUTOMATED 269 K/uL (150-450)
[2017-07-04 22:49] LABS: INR 1.01
--- NOTE | 2017-07-05 00:11 | RADIOLOGY IMAGING REPORT ---
FACILITY: [facility] PATIENT NAME: Sally Smiley : 1995 MR: [id number] V: [id number] EXAM DATE: ORDERING PHYSICIAN: VICENTE LU TECHNOLOGIST: Location: [facility] Patient: Sally Smiley : 1995 Visit/Account:[id number] Date of Sevice: 07/04/2017 Ultrasound of the pelvis: Indication: Pelvic pain and bleeding. Technique: Transabdominal and transvaginal imaging, with Doppler. A 3-D image of the uterus was also provided. Comparison: None. Uterus: Normal in size and shape, measuring, 6.5 x 3.8 x 2.9 cm. There is no evidence of uterine mass , calcification, or fluid. An IUD appears to be in satisfactory orientation within the endometrial ca vity. The endometrial stripe measures 3 mm. Right ovary/adnexa: The right ovary measures 3.7 x 1.9 x 1.6 cm. Multiple small follicles are present . Doppler images demonstrate no evidence of torsion. No adnexal mass or fluid collection is identifie d. Left ovary/adnexa: The left ovary measures 3.4 x 2.4 x 2.0 cm. Multiple small follicles are present. Doppler images demonstrate no evidence of torsion. No adnexal mass or fluid collection is identified. Free fluid: None seen. IMPRESSION: The uterus appears unremarkable. An IUD appears to be in satisfactory orientation within the endometrial cavity. Report Dictated By: Je Roland MD at 07/05/2017 12:01 AM Report E-Signed By: Je Roland MD at 07/05/2017 12:07 AM [id number]
[2017-07-05 00:28] VITALS: BP 105/70
== END 2017-07-05 00:35 | disposition home or self-care (01) ==
LOC: ER 22:17
DX: N94.6 Dysmenorrhea, unspecified (principal)
CPT/HCPCS: 36415; 76856; 82040; 82247; 82310; 82374; 82435; 82565; 82947; 84075; 84132; 84155; 84295; 84450; 84460; 84520; 84703; 85025; 85610; 85730; 99283

== ENCOUNTER 2017-07-07 03:27 | Emergency (ER) | payer BC ==
[~2017-07-07 03:27] MED LIST changes: +METF-410 PO; -METF-411 PO
[2017-07-07] MEDS ORDERED: LR(*) 1000 ML BAG 1,000 ML IV ONE (03:36)
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
[2017-07-07] MEDS ORDERED: OLANZapine ZYDIS ODT 5MG TABDP SL ONE (03:40)
[2017-07-07 03:57] LABS: PLATELET COUNT, AUTOMATED 255 K/uL (150-450)
[2017-07-07] MEDS ORDERED: EMS NS 0.9%(*) 1000 ML BAG 1,000 ML IV ONE (04:10)
[2017-07-07] MEDS ORDERED: WATER FOR INJ,STERILE 20 ML 20 ML ONE (04:38)
[2017-07-07 06:15] VITALS: BP 114/75
== END 2017-07-07 06:38 ==
LOC: ER 03:32
DX: F10.920 Alcohol use, unspecified with intoxication, uncomplicated (principal); R41.82 Altered mental status, unspecified; S50.811A Abrasion of right forearm, initial encounter; F41.9 Anxiety disorder, unspecified
CPT/HCPCS: 80305; 80320; 80329; 81001; 81025; 83735; 84443; 85025; 99284; J7120; 82040; 82247; 82310; 82374; 82435; 82565; 82947; 84075; 84132; 84155; 84295; 84450; 84460; 84520

== ENCOUNTER → 2017-07-07 | Outpatient (CLI) | payer BC ==
[~2017-07-07] MED LIST changes: -METF-410 PO; +METF-411 PO
== END ==
LOC: AMB 03:12
PROVIDERS: ATTEND Nurse Practitioner
DX: F10.129 Alcohol abuse with intoxication, unspecified (principal); R11.10 Vomiting, unspecified
CPT/HCPCS: A0425; A0427

== ENCOUNTER 2017-07-09 17:00 | Emergency (ER) | payer BC ==
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
[2017-07-09 17:12] VITALS: BP 116/80
== END 2017-07-09 19:01 | disposition home or self-care (01) ==
LOC: ER 17:15
DX: S70.12XA Contusion of left thigh, initial encounter (principal); S70.11XA Contusion of right thigh, initial encounter
CPT/HCPCS: 99284

== ENCOUNTER 2017-07-30 21:27 | Emergency (ER) | payer BC ==
[~2017-07-30 21:27] MED LIST changes: -METF-410 PO; +METF-411 PO
--- NOTE | 2017-07-30 21:31 | ER Report ---
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 Patient notes she's had 1 episode of diarrhea. Patient states the staff daycare for been having Clostridium difficile diarrhea. Patient denies recent antibiotic use. Patient denies fever or chills. Patient's had several episodes of dry heaves. Patient notes a mild epigastric pain. REVIEW OF SYSTEMS: Respiratory: No cough, no dyspnea. Cardiovascular: No chest pain, no palpitations. Gastrointestinal: As above Musculoskeletal: No back pain. Allergies: Coded Allergies: pork derived (porcine) (Verified Allergy, Severe, 07/30/17) anaphylaxis soy (Verified Allergy, Severe, 07/30/17) anaphylaxis Uncoded Allergies: beans (Allergy, Severe, 11/22/13) anaphylaxis turkey (Allergy, Mild, cramps, 12/22/13) Home Meds Active Scripts Promethazine Hcl (PROMETHAZINE HCL) 25 Mg Tablet, 25 MG PO Q4H Y for NAUSEA/ VOMITING, #14 TAB Prov:SIOMARA BERGER DO 07/30/17 Ondansetron (ZOFRAN ODT) 4 Mg Tab.rapdis, 4 MG PO every 6 hours Y for NAUSEA/ VOMITING, #10 TAB TAKE 1 TABLET BY MOUTH EVERY 12 HOURS Prov:SIOMARA BERGER DO 07/30/17 Epinephrine (EPIPEN 2-JEMMA) 0.3 Mg/0.3 Ml Pen.injctr, 0.3 MG IM PRN Y for allergic reaction, #1 Prov:SIOMARA BERGER DO 05/01/17 Reported Medications Escitalopram Oxalate (LEXAPRO) 20 Mg Tablet, 10 MG PO QDAY, TAB 05/01/17 Reviewed Nurses Notes: Yes Old Medical Records Reviewed: Yes Hx Smoking: Yes (SMOKED 1/2 PPD FOR 1.5 YEARS) Smoking Status: Former Smoker Exposure to Second Hand Smoke?: Yes Hx Substance Use Disorder: No Hx Alcohol Use: No Constitutional Vital Sign - Last 24 Hours 07/30/17 07/30/17 07/30/17 07/30/17 21:32 21:42 21:57 22:00 Temp 96.9 Pulse 82 81 70 Resp 16 B/P (MAP) 122/72 106/73 (84) Pulse Ox 99 93 97 07/30/17 22:12 Pulse 82 Pulse Ox 97 Physical Exam General Appearance: The patient is alert, has no immediate need for airway protection and no current signs of toxicity. Vital signs stable, afebrile, pulse ox normal HEENT: Pupils equal and round no injection. TMs normal, oropharynx with mild erythema, no exudate or petechia Respiratory: Chest is non tender, lungs are clear to auscultation. Cardiac: regular rate and rhythm Gastrointestinal: Abdomen is soft, mild epigastric tenderness, no masses, bowel sounds normal. Musculoskeletal: Neck: Neck is supple and non tender. Extremities have full range of motion and are non tender. Skin: No rashes or lesions. DIFFERENTIAL DIAGNOSIS: After history and physical exam differential diagnosis was considered for abdominal pain including but not limited to appendicitis, cholecystitis, gastroenteritis, food poisoning, C. difficile diarrhea, gastritis and urinary tract infection. Medical Decision Making ED Course/Re-evaluation ED Course Patient was admitted to an examination room. H&P was done. The differential diagnoses was considered. Patient was medicated with Zofran sublingual 4 mg. After observation of 40 minutes. Patient was given a by mouth challenge and tolerated by mouth's. She is discharged home with Zofran and Phenergan to control her symptoms. She is advised clear liquid diet. Patient was unable to provide a stool specimen for testing for C. difficile. However, she is only had symptoms for a few hours. It's unlikely that she has clustered, and if so, but she does have a history of exposure. Decision to Disposition Date: July 30, 2017 Decision to Disposition Time: 22:08 Depart Departure Latest Vital Signs Vital Signs Date Time Temp Pulse Resp B/P (MAP) Pulse Ox O2 Delivery O2 Flow Rate FiO2 07/30/17 22:12 82 97 07/30/17 22:00 106/73 (84) 07/30/17 21:32 96.9 16 Impression: Primary Impression: Vomiting and diarrhea Condition: Improved Disposition: HOME OR SELF-CARE Referrals: LEELA CAMPBELL (PCP) New Scripts Promethazine Hcl (PROMETHAZINE HCL) 25 Mg Tablet 25 MG PO Q4H Y for NAUSEA/VOMITING, #14 TAB Prov: SIOMARA BERGER DO 07/30/17 Ondansetron (ZOFRAN ODT) 4 Mg Tab.rapdis 4 MG PO every 6 hours Y for NAUSEA/VOMITING, #10 TAB TAKE 1 TABLET BY MOUTH EVERY 12 HOURS Prov: SIOMARA BERGER DO 07/30/17 Patient Instructions: Acute Nausea and Vomiting (ED), Clear Liquid Diet (ED) Additional Instructions: Follow clear liquid diet for 24-48 hours, then advance to [place] diet, bananas, rice, applesauce, toast Avoid fatty food, greasy foods, dairy and vegetables for 48 hours Use Phenergan and Zofran to control your vomiting Follow-up with primary care if unimproved in 3-5 days SIOMARA BERGER DO July 30, 2017 21:31
[2017-07-30] MEDS ORDERED: ONDANSETRON 4 MG ODT TABDP SL ONE (21:40)
[2017-07-30 22:00] VITALS: BP 106/73
[2017-07-30] MEDS ORDERED: ONDA4TAB PO (22:10)
[2017-07-30] MEDS ORDERED: PROM-110 PO (22:10)
[2017-07-30] MEDS ORDERED: ONDANSETRON 4 MG ODT TH SL ONE (22:15)
== END 2017-07-30 22:20 | disposition home or self-care (01) ==
LOC: ER 21:36
DX: R11.10 Vomiting, unspecified (principal); R19.7 Diarrhea, unspecified
CPT/HCPCS: 99283; S0119

== ENCOUNTER → 2017-08-20 | Outpatient (CLI) | payer BC ==
--- NOTE | 2017-08-20 16:33 | RADIOLOGY IMAGING REPORT ---
FACILITY: [facility] PATIENT NAME: PAULO SARAH : [id number] MR: [id number] V: [id number] EXAM DATE: ORDERING PHYSICIAN: DECLAN SORTO TECHNOLOGIST: Adriana Taylor RDMS(ABD,OBGYN,BR),RVT PROCEDURE:US LEFT BREAST COMPARISON:None. INDICATIONS:DISCHARGE BILAT BREASTS & PAIN IN THE 4 O'CLOCK POSITION LEFT BREAST. FINDINGS: The Left breast was imaged in the 3-6 o'clock position and also in the retroareolar region demonstrating no evidence of sonographly detectable mass. Clinical follow-up recommended for patient's Left breast pain. DIAGNOSTIC CATEGORY 1--NEGATIVE. RECOMMENDATIONS: CLINICAL EVALUATION. IMPRESSION: BIRADS 1: Negative. No significant abnormality identified to account for patient's Left breast pain or nipple discharge. Clinical follow-up recommended. Dictated by: Triny Madsen M.D. on 08/20/2017 at 14:40 Transcribed by: TIAN on 08/20/2017 at 15:27 Approved by: Triny Madsen M.D. on 08/20/2017 at 16:32 [facility]
--- NOTE | 2017-08-20 16:33 | RADIOLOGY IMAGING REPORT ---
FACILITY: [facility] PATIENT NAME: PAULO SARAH : [id number] MR: [id number] V: [id number] EXAM DATE: [id number] ORDERING PHYSICIAN: DECLAN SORTO TECHNOLOGIST: Nasima Go PROCEDURE:BILATERAL DIAGNOSTIC DIGITAL MAMMOGRAM WITH CAD ASSISTED INTERPRETATION & 3D TOMOSYNTHESIS COMPARISON:None. INDICATIONS:DISCHARGE BILAT BREASTS & LEFT BREAST PAIN IN 4 O'CLOCK POSITION FINDINGS: Moderately dense fibroglandular tissue is seen throughout the breasts. There is no demonstration of malignant appearing mass, malignant appearing calcifications or other secondary sign of malignancy in either breast. Today's Left breast Ultrasound also revealed no abnormality therefore clinical follow-up recommended for patient's Left breast pain and milky nipple discharge. DIAGNOSTIC CATEGORY 1-NEGATIVE RECOMMENDATIONS: CLINICAL EVALUATION. IMPRESSION: BIRADS 1: Negative. No mammographic or sonographic abnormality seen. Therefore clinical follow-up recommended. OF NOTE: Patient gives a strong family history of breast cancer. A screening breast MR with and without contrast maybe helpful. Dictated by: Triny Madsen M.D. on 08/20/2017 at 14:44 Transcribed by: TIAN on 08/20/2017 at 15:15 Approved by: Triny Madsen M.D. on 08/20/2017 at 16:32 [facility]
== END ==
LOC: MAMO 10:34
PROVIDERS: ATTEND Physician Assistant
DX: Z80.3 Family history of malignant neoplasm of breast (principal)
CPT/HCPCS: 77062; 77066

== ENCOUNTER 2017-08-23 12:24 | Emergency (ER) | payer BC ==
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
[2017-08-23] MEDS ORDERED: DOXY50SY2 PO (12:47)
[2017-08-23] MEDS ORDERED: CHOL10005 PO (12:47)
[2017-08-23] MEDS ORDERED: ACET500T68 PO (12:47)
[2017-08-23] MEDS ORDERED: METR-119 PO (12:47)
[2017-08-23] MEDS ORDERED: CYAN250013 (12:47)
[2017-08-23] MEDS ORDERED: NS(*) 0.9% 1000 ML BAG 1,000 ML IV ONE (12:48)
[2017-08-23] MEDS ORDERED: PANTOPRAZOLE SOD 40 MG IV VIAL IVP ONE (12:50)
[2017-08-23] MEDS ORDERED: ONDANSETRON 4 MG/2 ML VIAL IVP ONE (12:50)
[2017-08-23] MEDS ORDERED: IOPAMIDOL 76% 75 ML INFUS BTL 75 ML ONE (13:15)
[2017-08-23 13:26] LABS: PLATELET COUNT, AUTOMATED 248 K/uL (150-450)
--- NOTE | 2017-08-23 14:52 | RADIOLOGY IMAGING REPORT ---
FACILITY: [facility] - [place] PATIENT NAME: Sally Smiley : 1995 MR: [id number] V: [id number] EXAM DATE: ORDERING PHYSICIAN: MIREYA VASQUEZ TECHNOLOGIST: [place] [facility] [place] Sally Smiley : 1995 Visit/Account:[id number] Date of Sevice: 08/23/2017 ABDOMEN/PELVIS WITH CONTRAST HISTORY: Abdominal pain. Bloody stools. TECHNIQUE: Axial images were obtained through the abdomen and pelvis with intravenous contrast . One of the following dose optimization techniques was utilized in the performance of this exam: automate d exposure control; adjustment of the mA and/or kv according to patient size; or use of iterative rec onstruction technique. Specific details can be referenced in the facility's radiology CT exam operati onal policy. CONTRAST: 75 mL of Isovue-370 COMPARISON: CT abdomen/pelvis 04/14/2017 FINDINGS: Visualized lung bases: Negative. Hepatobiliary: Negative. Spleen: Negative. Adrenals: Negative. Pancreas: Negative. Kidneys/ureters/bladder: Negative. Bowel/peritoneum/mesentery: No acute inflammatory change surrounding the appendix. No bowel obstruc tion, free air or ascites. No inflammatory change surrounding the colon. Most of the colon is decom pressed. Vessels: Negative. Lymph nodes: Negative. Pelvic genitourinary: Well-positioned IUD. Bones/body wall: Negative. Other findings: None significant IMPRESSION: 1. No concerning mass, lymphadenopathy or acute inflammatory process. Report Dictated By: Matt Gaitan MD at 08/23/2017 2:42 PM Report E-Signed By: Matt Gaitan MD at 08/23/2017 2:48 PM [id number]:[email or web address]
[2017-08-23 15:06] VITALS: BP 103/68
== END 2017-08-23 15:24 | disposition home or self-care (01) ==
LOC: ER 12:25
DX: R10.13 Epigastric pain (principal); K92.1 Melena; R11.2 Nausea with vomiting, unspecified
CPT/HCPCS: 74177; 81001; 83690; 84703; 85025; 87088; 96361; 96374; 96375; 99284; C9113; J2405; J7030; Q9967; 82040; 82247; 82310; 82374; 82435; 82565; 82947; 84075; 84132; 84155; 84295; 84450; 84460; 84520

== ENCOUNTER → 2017-09-19 | Outpatient (CLI) | payer BC ==
[~2017-09-19] MED LIST changes: +ACET500T68 PO; +CHOL10005 PO; +CYAN250013; +DOXY50SY2 PO; +GADOBENATE 529MG/1ML 15ML VIAL IVP ONE; +METR-119 PO; +NS 0.9% 20 ML SDV 40 ML ONE; -TRAZ-163 PO; +TRAZ100T31 PO
--- NOTE | 2017-09-19 15:06 | RADIOLOGY IMAGING REPORT ---
FACILITY: [facility] - [place] PATIENT NAME: Sally Smiley : 1995 MR: [id number] V: [id number] EXAM DATE: ORDERING PHYSICIAN: DECLAN SORTO TECHNOLOGIST: Location: [facility] Patient: Sally Smiley : 1995 Visit/Account:[id number] Date of Sevice: 09/19/2017 Examination: Pituitary MR without and with contrast. History: Elevated prolactin Comparison: Head CT April 14, 2017 Technique: Biplane pre and postcontrast MR imaging performed through the pituitary gland region. 15 mL MultiHance injected. Sagittal T1, axial flair, coronal T2 and diffusion sequences performed throu gh the brain. A thin section T2 acquisition was also obtained through the sella and clinical appeals auditor y canal region. Notably no sagittal postcontrast acquisition obtained through the pituitary region. Findings: No diffusion restriction, hydrocephalus or midline shift. No parenchymal signal abnormality. The mi dline craniocervical structures are normal. Normal orbits. Normal optic chiasm and infundibulum. N ormal cavernous sinuses. The pituitary gland is normal in size and enhances uniformly without abnormality. Normal midline inf undibulum. Normal cavernous sinuses. IMPRESSION: Normal pituitary gland and sella region. No intracranial abnormality seen on the additional acquisitions obtained. Report Dictated By: Roberth Monique MD at 09/19/2017 2:50 PM Report E-Signed By: Roberth Monique MD at 09/19/2017 3:02 PM WSN:[id number]
== END ==
LOC: MRI 07:04
PROVIDERS: ATTEND Physician Assistant
DX: N64.3 Galactorrhea not associated with childbirth (principal); E22.1 Hyperprolactinemia
CPT/HCPCS: 70553; A9577; J7050